=== PATIENT | male | born 1965 ===

== ENCOUNTER 2017-05-08 20:34 | Inpatient (IN) ==
--- NOTE | 2017-05-08 21:03 | Emergency Department Note ---
Dayna Mendez Mantricia, am scribing for, and in the presence of, Jeff Gomez MD 21:00. Jason Mendez Robert M, MD, personally performed the services described in this documentation, ascribed by Triny Mcintosh in my presence, and it is both accurate and complete . Arrival - Arrival Chief Complaint: Abdominal / Flank Pain Stated Complaint: Pancreatitis ED Nursing Triage Note: Patient to ED via EMS from [facility] ED for further evaluation of ABD pain x 1 day with a DX at [facility] at pancreatitis AEB elevated amylase and lipase. Mode of Arrival: Stretcher Limitations: No Limitations Source: Patient Time Seen by Provider: 05/08/17 20:56 - History of Present Illness HPI Narrative: Pt is a 52 y/o male arriving to ED by EMS from [facility] ED for further evaluation of abdominal pain that onset today. Pt was diagnosed with pancreatitis at [facility] and an elevated amylase and lipase. When asked, pt is not sure if he has had his gallbladder removed before. At time of exam, pt is sleeping and is a poor historian. No other complaints were reported to ED. Onset (ago): hour(s) Consistency: constant Severity: mild Allergies/Adverse Reactions: Allergies Allergy/AdvReac Type Severity Reaction Status Date / Time cefazolin [From Ancef] Allergy Severe Difficulty Verified 05/08/17 20:45 Breathing ciprofloxacin [From Cipro] Allergy Severe Difficulty Verified 05/08/17 20:45 Breathing ketorolac [From Toradol] Allergy Severe Nausea Verified 05/08/17 20:45 morphine Allergy Severe Nausea Verified 05/08/17 20:45 tramadol [From Ultram] Allergy Severe Hallucinati Verified 05/08/17 20:45 ng Home Medications: Home Medications Medication Instructions Recorded Confirmed Type Calcium Carbonate Chew [Tums] 3 tablet PO TID 01/10/17 01/10/17 History HYDROcodone/ACETAMIN 10-325 [[place] 1 tablet PO Q4H 01/10/17 01/10/17 History 10-325] Lidocaine/Prilocaine Cream [Emla] 1 applic TOP PREMED PRN 01/10/17 01/10/17 History Multivitamin (Berocca) [Berocca] 1 tablet PO DAILY 01/10/17 01/10/17 History Pantoprazole Tab [Protonix Tab] 40 mg PO DAILY 01/10/17 01/10/17 History Sevelamer Carbonate Tab [Renvela 3,200 mg PO TID W/MEALS 01/10/17 01/10/17 History Tab] Review of System - Review of System 12 point system: reviewed and no additional remarkable complaints except as stated - Review of System Constitutional: Absent: chills, diaphoresis, fever Eyes: Absent: pain Respiratory: Absent: cough Cardiovascular: Absent: chest pain Gastrointestinal: Present: abdominal pain. Absent: nausea, vomiting, diarrhea Medical,Surgical,& Family Hx - Medical History HEENT: History of: Ear Problem ([place]) Endocrine: History of: Adrenal Disease (alport syndrome) Renal: History of: Dialysis, Renal Failure Gastrointestinal: History of: GERD, Pancreatitis Musculoskeletal: History of: Back/Neck Problems - Social History Smoking Status: Never smoker Frequency of Alcohol Use: None Type of Drug Use: None Exam Vital Signs: Vital Signs Temperature 97.7 F 05/08/17 20:40 Pulse Rate 73 05/08/17 20:40 Respiratory Rate 12 05/08/17 20:40 Blood Pressure 104/64 05/08/17 20:40 O2 Sat by Pulse Oximetry 98 05/08/17 20:40 - Head Head exam: Present: atraumatic, normocephalic, normal inspection - Eye Eye exam: Present: normal appearance, PERRL, EOMI - ENT ENT exam: Present: normal exam, normal oropharynx, mucous membranes moist, TM's normal bilaterally, normal external ear exam - Neck Neck exam: Present: normal inspection, full ROM, trachea midline. Absent: tenderness - Chest Chest inspection: Present: normal inspection, symmetric chest wall rise. Absent : tenderness - Respiratory Respiratory exam: Present: normal lung sounds bilaterally - Cardiovascular Cardiovascular exam: Present: regular rate, normal rhythm, normal heart sounds - Abdominal Exam Abdominal exam: Present: soft, tenderness (dull tenderness in mid-epigastric), normal bowel sounds. Absent: distention, guarding, rebound - Extremities Exam Extremities exam: Present: normal inspection, full ROM, normal capillary refill. Absent: tenderness, pedal edema - Back Exam Back exam: Present: normal inspection, full ROM. Absent: tenderness - Neurological Exam Neurological exam: Present: alert, oriented X3, CN II-XII intact, normal gait, reflexes normal - Psychiatric Psychiatric exam: Present: normal affect, normal mood - Skin Skin exam: Present: warm, dry, intact, normal color Results - Labs Lab Results: I have reviewed the patients labs Labs: Amylase 276 U/L (25-115) H 05/08/17 21:51 Lipase 781.0 U/L (73-393) H 05/08/17 21:51 - Diagnostic Findings Procedure: Ultrasound: image reviewed by me (Distended gallbladder without stones or wall thickening. Ultrasonographic multiple Ellison sign present.) Disposition Clinical Impression: Pancreatitis, ESRD (end stage renal disease) on dialysis Case discussed with: patient, patient's family Disposition: Still a Patient Condition: Stable Time of Disposition: 22:15
--- NOTE | 2017-05-08 23:50 | Hospitalist History & Physical ---
History of Present Illness Chief complaint: acute abdominal pain History of present illness: Mr. Sanabria is a 52 year old male was transferred from out side facility for acute abdominal pain. He was found to have acute pancreatitis. Patient is a difficult historian. He states that he has pain in the RUQ. It is unknown whether or not there are any radiations. He denies any n/v. He does not know what the pain feels like. He denies any SOB or CP. He has ESRD and undergoes HD. He has a history of ETOH abuse. He is unable to tell me the last time he drank alcohol. Home Medications Medication Instructions Recorded Confirmed Type Calcium Carbonate Chew [Tums] 3 tablet PO TID 01/10/17 01/10/17 History HYDROcodone/ACETAMIN 10-325 [[place] 1 tablet PO Q4H 01/10/17 01/10/17 History 10-325] Lidocaine/Prilocaine Cream [Emla] 1 applic TOP PREMED PRN 01/10/17 01/10/17 History Multivitamin (Berocca) [Berocca] 1 tablet PO DAILY 01/10/17 01/10/17 History Pantoprazole Tab [Protonix Tab] 40 mg PO DAILY 01/10/17 01/10/17 History Sevelamer Carbonate Tab [Renvela 3,200 mg PO TID W/MEALS 01/10/17 01/10/17 History Tab] Allergies Allergy/AdvReac Type Severity Reaction Status Date / Time cefazolin [From Ancef] Allergy Severe Difficulty Verified 05/08/17 20:45 Breathing ciprofloxacin [From Cipro] Allergy Severe Difficulty Verified 05/08/17 20:45 Breathing ketorolac [From Toradol] Allergy Severe Nausea Verified 05/08/17 20:45 morphine Allergy Severe Nausea Verified 05/08/17 20:45 tramadol [From Ultram] Allergy Severe Hallucinati Verified 05/08/17 20:45 ng Medical,Surgical,& Family Hx - Medical History HEENT: History of: Ear Problem ([place]) Endocrine: No history of: Adrenal Disease (alport syndrome) Renal: History of: Dialysis, Renal Failure, Renal Problems (alport disease) Gastrointestinal: History of: GERD, Pancreatitis Musculoskeletal: History of: Back/Neck Problems - Surgical History Cardiac Surgeries: Sugical HX of: Vascular Access Devices (AV fistula) - Social History Smoking Status: Never smoker Frequency of Alcohol Use: Unknown Type of Drug Use: None, Unknown ROS unobtainable: other (difficult to obtain likely because of language barrier ; ROS per HPI) - Constitutional Constitutional: Present: as per HPI - EENT Eyes: Present: as per HPI - Cardiovascular Cardiovascular: Present: as per HPI - Respiratory Respiratory: Present: as per HPI - Gastrointestinal Gastrointestinal: Present: abdominal pain Exam - Constitutional Vitals: Period Temp Pulse Resp BP Sys/August Pulse Ox Last 24 Hr 97.7 F-97.7 F 73-73 12-12 104-104/64-64 98 General appearance: normal weight - Head Head exam: Present: normal inspection - Eye Eye exam: Present: EOMI, other (muddy sclera) Pupils: Present: FAVIOLA - ENT ENT exam: Present: normal exam - Cardiovascular Cardiovascular exam: Present: regular rate and rhythm - GI/Abdominal GI/Abdominal exam: Present: normal bowel sounds, Ellison's sign, tenderness (RUQ and mid epigastric tenderness without any rebound or guarding). Absent: distended, guarding, rebound - Extremities Exam Extremities exam: Present: other (LUE AVF with palpable thrill and audible bruit ). Absent: edema - Back Exam Back exam: Present: CVA tenderness (R) - Neurological Exam Neurological exam: Present: alert - Skin Skin exam: Present: other (tanned) Results - Labs Labs: labs scanned into system; please review 12.2 15.2> <149 36.2 139 97 16 <95 3.9 30 5.1 ALT: 34, AST: 27, Tb: 0.60, AP: 70 lipase: 1626, amylase: 380 lipase here: 781, amylase here: 276 RUQUS: no official report; distended gallbladder, no stones/sludge/gallbladder wall thickening - Impressions Assessment: 1. Acute abdominal pain 2. Acute pancreatitis 3. Distended gallbladder 4. Leukocytosis, afebrile 5. comorbid conditions: ESRD, GERD, [place] disease, OA, chronic pain syndrome Plan: bowel rest, very cautions IVFs, monitor volume and respiratory status; control pain; consult GI; surgery consulted from ER; check TGs; add aztreonam (allergy to ancef/cipro, so avoid zosyn/merrem/levaquin) given leukocytosis and concern for GI pathology; obtain chest x-ray; consult nephrology for HD; DVT and GI prophalaxis. Continue home medications as appropriate. The plan of care may be modified as more information becomes available.
[2017-05-09] MEDS ORDERED: ONDANSETRON 4 MG/2 ML VIAL IV PRN (00:13)
[2017-05-09] MEDS: SODIUM CHLORIDE 0.9% 1,000 ML IV SCH ×4 (00:57→22:11)
[2017-05-09] MEDS: MEPERIDINE 25 MG/1 ML VIAL IM PRN ×4 (02:40→22:06)
[2017-05-09] MEDS: AZTREONAM 500 MG in SODIUM CHLORIDE 0.9% 100 ML IV SCH ×2 (02:45→13:24)
[2017-05-09 05:14] LABS: Basophils % 0.4 % (0.0-0.8); Eosinophils # 0.2 10*3/uL (0.0-0.87); Eosinophils % 2.1 % (0.00-10.9); Hematocrit 34.3 VOL% (42.0-52.0); Hemoglobin 11.4 GM/DL (14.0-18.0); Immature Granulocytes % 0.6 %; Immature Granulocytes Absolute 0.05 #; Lymphocytes # 0.9 10*3/uL (1.4-4.0); Lymphocytes % 9.5 % (21.2-54.2); Mean Corpuscular HGB Conc 33.2 GM/DL (32-36); Mean Corpuscular Hemoglobin 33 PG (27-34); Mean Platelet Volume 9.9 FL (9.6-12.0); Monocytes # 0.5 10*3/uL (0.11-0.8); Monocytes % 5.6 % (1.7-12.7); Neutrophils # 7.4 10*3/uL (1.4-7.4); Neutrophils % 81.8 % (38.7-73.9); Platelet Count 148 T/CUMM (130-400); Red Blood Count 3.43 MC/CUMM (3.8-5.5); White Blood Count 9.1 T/CUMM (4-12)
[2017-05-09 05:58] LABS: Calcium 7.1 MG/DL (8.5-10.1); Magnesium 2.5 MG/DL (1.8-2.4); Osmolality,Calculated 275.8 MOS/KG (273-304); Potassium 4.3 MMOL/L (3.5-5.1); Risk Ratio 1.76; VLDL CHOLESTEROL 21.8 MG/DL
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
--- NOTE | 2017-05-09 07:17 | XRay Report ---
XR KUB Indication: Abdominal pain Comparison: 04 August 2014 Findings: No free fluid or free air seen. IVC filter and iliac vein stent on the left are present similar to previous. The bowel gas pattern appears within normal limits. The bili No abnormal calcifications are present. No other abnormality is identified. Impression: No evidence of acute process demonstrated PROCEDURE INTERPRETED AT [facility] DEPARTMENT OF RADIOLOGY Final Report Signed by: Dr. Mykel Vyas
--- NOTE | 2017-05-09 07:19 | Ultrasound Report ---
Right upper quadrant ultrasound Indication: Abdominal Pain, elevated lipase Findings: The liver is normal in size and echogenicity. The gallbladder is distended. The gallbladder wall thickness appears within normal limits. The common bile duct measures 8.0 mm. The visualized portion of the pancreas appear within normal limits The right kidney is small and atrophic in size and echogenicity and measures 6.8 cm . No free fluid or free air seen. Impression: Distended gallbladder and distended the common biliary duct could indicate distal obstruction. No other acute findings. Ultrasound images stored and captured. PROCEDURE INTERPRETED AT [facility] DEPARTMENT OF RADIOLOGY Final Report Signed by: Dr. Mykel Vyas
[2017-05-09] MEDS: PANTOPRAZOLE 40 MG VIAL IV SCH (08:39)
[2017-05-09] MEDS: ENOXAPARIN 30 MG/0.3 ML SYRINGE SUBCUT SCH (08:39)
--- NOTE | 2017-05-09 08:43 | XRay Report ---
XR chest 1V portable Indication: Pneumonia Comparison: 05 July 2014 Findings: The heart and mediastinum are normal in size and configuration. The pulmonary vascularity is normal in caliber. Left upper lung nodular density is similar in appearance to previous exams. No other lung infiltrates, effusions, pneumothorax or other abnormality is demonstrated. Impression: No acute findings or significant changes. PROCEDURE INTERPRETED AT [facility] DEPARTMENT OF RADIOLOGY Final Report Signed by: Dr. Mykel Vyas
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
--- NOTE | 2017-05-09 13:54 | Hospitalist Progress Note ---
Assessment and Plan (1) Acute pancreatitis Status: Acute Assessment and plan: Patient presented with mild/moderate bedside severity index of acute pancreatitis. He is stable in terms of vital signs not having fevers no respiratory issues white count is normal and hemoglobin is sufficient. Believe it can be fed start with low-fat diet. He can tolerated continue to feed him. Repeat a CMP lipase CBC on the chest x-ray in the morning. Current Visit: Yes (2) Abdominal pain Status: Acute Assessment and plan: Conservatively treat this with the analgesia most likely Dilaudid 1 mg IV every 6 hours as needed Current Visit: Yes Hospitalist: Subjective Interval history: Patient has been seen interviewed and examined chart has been reviewed. Patient is admitted overnight with acute subacute progression of an abdominal pain found to have pancreatitis. Was admitted with a lipase of 781 is down 325 his hemoglobin is 11.4 and 34.3 is a creatinine of 6.7 and the patient is known to have end-stage renal disease on dialysis 3 times a week. He does not have respiratory failure no pleural effusions but does have history of prior pancreatitis and a history of alcohol overuse which she says he has not drank for over a year. Exam - Constitutional Vitals: Period Temp Pulse Resp BP Sys/August Pulse Ox Last 24 Hr 97.7 F-98.5 F 64-77 12-81 78-108/47-66 94-98 General appearance: no acute distress, under weight, other (Requesting to be fed ) - Head Head exam: Present: normocephalic, atraumatic - Eye Eye exam: Present: EOMI, other (Anicteric sclera no conjunctival petechia) Pupils: Present: FAVIOLA - Neck Neck exam: Present: normal inspection - Respiratory Respiratory exam: Present: clear to auscultation bilaterally - Cardiovascular Cardiovascular exam: Present: regular rate and rhythm - GI/Abdominal GI/Abdominal exam: Present: normal bowel sounds, soft, other (Tender mostly periumbilical) - Extremities Exam Extremities exam: Present: full ROM - Neurological Exam Neurological exam: Present: alert, oriented X3, CN II-XII intact - Psychiatric Psychiatric exam: Present: normal affect, normal mood - Skin Skin exam: Present: normal color, warm, dry Results - Labs CBC & BMP: 05/09/17 04:19 05/09/17 04:19 Lab Results: I have reviewed the past 24 hour labs
--- NOTE | 2017-05-09 14:02 | Nuclear Medicine Report ---
History: Abdominal pain Date: 05/09/2017 Study: Nuclear medicine hepatobiliary scan with gallbladder ejection fraction Comparison exam: No previous similar Following the IV administration of 5 mCi technetium 99m Choletec, there is homogeneous uptake of the radiotracer by the liver. There is gallbladder visualization at 15 minutes. There is duodenal visualization at 25 minutes. Following routine imaging, gallbladder ejection fraction was calculated. Counts were measured over the gallbladder for 60 minutes after the ingestion of 8 ounces of ensure. The ejection fraction measures abnormally low at 8.5%. Impression: Abnormally low gallbladder ejection fraction of 8.5%. Otherwise normal study PROCEDURE INTERPRETED AT [facility] DEPARTMENT OF RADIOLOGY Final Report Signed by: Dr. Mine Flores
[2017-05-09] MEDS: SEVELAMER CARBONATE 800 MG TABLET PO SCH (18:11)
--- NOTE | 2017-05-09 19:13 | Gastrointestinal Consult Note ---
Assessment and Plan (1) Acute pancreatitis Status: Acute Assessment and plan: This is the main reason the patient is here, and although the patient has a history of alcohol abuse this ended some 15 years ago by report. Triglycerides are completely normal as is calcium and the patient does not have hypercalcemia , there is no history of abdominal trauma, insect envenomations, tropical fruit ingestion, or family history of chronic/recurrent pancreatitis. We need to check his liver function tests and see if there is a elevation the patient's bilirubin and alkaline phosphatase to go along with a dilation of the common bile duct that might be suggestive of biliary obstruction. I am going to go ahead and order an MRCP in order to look for stones as well as verify the ductal dilatation seen on ultrasound previously. I suspect this patient may have microlithiasis and if he is not a good surgical candidate we might want to treat this with Actigall 300 mg p.o. twice daily, especially if he is demonstrating normal liver function tests. This may also help out with chronic cholecystitis and his right upper quadrant pain. If the MRCP is negative and his pain continues unabated surgical resection of his gallbladder and intraoperative cholangiogram may be good choices for him. This would certainly prevent further episodes of pancreatitis due to microlithiasis. Will reassess after MRCP and liver function tests have returned tomorrow as well as examining the trend of his lipase levels. In the interim since the patient's pain is still on 8 out of 10 in intensity I suggest strongly suggest continuing to leave him on a clear liquid diet as this will be less stimulating for the pancreas. Current Visit: Yes (2) Abnormal findings on radiological examination of gastrointestinal tract Status: Acute Assessment and plan: This refers to the patient's dilation of the common bile duct and distention of the gallbladder. If the patient is still having severe pain after another 48 hours would consider getting a CT scan of the abdomen to look for early pseudocyst formation and see the extent of the pancreatitis. Would suggest use of proton pump inhibitors in the interim to suppress acidity as this can typically increase during episodes of pancreatitis. Current Visit: Yes (3) Personal history of colonic polyps Status: Acute Assessment and plan: Patient's next colonoscopy will be needed in June 2019 due to the previous tubular adenomas removed in June 2014. Current Visit: Yes (4) Gastritis and duodenitis Status: Acute Assessment and plan: This patient has a history of gastritis and duodenitis, he is currently on Protonix which should be suppressing this for him. Current Visit: Yes History of Present Illness Chief complaint: Dilated common bile duct, pancreatitis, possible chronic cholecystitis History of present illness: Mr. Sanabria is a 52 year old male who has been seen both by myself and Dr. Mcknight upon occasion in the past. The last upper endoscopy was done by Dr. Mcknight on for gastrointestinal bleeding. The patient had a moderate sized hiatal hernia, antral gastritis and bulbar duodenitis as well as a duodenal arteriovenous malformation without active bleeding at that time. Subsequent to this the patient underwent colonoscopy with hot biopsy polypectomy and hemorrhoidal banding on 08/05/14, total of 5 bands were placed on the patient's rectal varices. Biopsies have been previously taken from the polyps had previously been removed from the ascending and transverse regions demonstrated tubular adenomas. This will need repeat colonoscopy in June 2019. The patient is now being seen at this time due to the development of pancreatitis in association likely with gallstones or microlithiasis. The patient's discontinued drinking some 15 years ago by report. He had been a heavy drinker before that time and has actually developed alcohol "poisoning" twice in his life. He states this pain felt similar to that pain he was noted to have an elevated lipase level to 1626 at an outside hospital, here this was noted to have dropped down to 781 yesterday with a subsequent drop down to 325 today. Likewise lipase level had also dropped from 380 at the outside institution to 276 yesterday and is now down to 171 (slightly higher than the usual range of 25 -115). The patient feels that his pain was yesterday up to "11 out of 10 but is now down to an 8 out of 10 in intensity. Pain was described as a sharp pressure in the epigastric region and right upper quadrant. This did radiate through to his back. Because of his renal status we are not able to treat him with the usual fluid bolus to flush him out, he is due to go to dialysis tomorrow. Given the fact that he is still having such severe pain we will switch him over to a clear liquid diet again. The patient's ultrasound done on 05/08/17 show a distended gallbladder and a dilated common bile duct at 8 mm but is otherwise unremarkable. I do not see set of liver function tests done here to follow the patient's bilirubin but will certainly obtain this to look for obstruction. He did get a HIDA scan that demonstrated an ejection fraction of only 8.7% consistent with chronic cholecystitis. White blood cell count is only 9.1 and I am not suspicious of cholangitis. His hematocrit and hemoglobin are surprisingly good at 34.3 and 11.4 respectively. Creatinine is 6.7 at this time. Home Medications Medication Instructions Recorded Confirmed Type Calcium Carbonate Chew [Tums] 3 tablet PO TID 01/10/17 05/09/17 History HYDROcodone/ACETAMIN 10-325 [[place] 1 tablet PO Q4H 01/10/17 05/09/17 History 10-325] Lidocaine/Prilocaine Cream [Emla] 1 applic TOP PREMED PRN 01/10/17 05/09/17 History Multivitamin (Berocca) [Berocca] 1 tablet PO DAILY 01/10/17 05/09/17 History Pantoprazole Tab [Protonix Tab] 40 mg PO DAILY 01/10/17 05/09/17 History Sevelamer Carbonate Tab [Renvela 3,200 mg PO TID W/MEALS 01/10/17 05/09/17 History Tab] Allergies Allergy/AdvReac Type Severity Reaction Status Date / Time cefazolin [From Ancef] Allergy Severe Difficulty Verified 05/08/17 20:45 Breathing ciprofloxacin [From Cipro] Allergy Severe Difficulty Verified 05/08/17 20:45 Breathing ketorolac [From Toradol] Allergy Severe Nausea Verified 05/08/17 20:45 morphine Allergy Severe Nausea Verified 05/08/17 20:45 tramadol [From Ultram] Allergy Severe Hallucinati Verified 05/08/17 20:45 ng Medical,Surgical,& Family Hx - Medical History Cardio: History of: Hypertension Psychological: History of: Psychiatric/Substance Abuse Tx (HX ALCOHOL ABUSEB ( STOPPED 20 YRS AGO) A), Violent Behavior (WHEN WAS DRINKING) HEENT: History of: Ear Problem ([place]), Eye Problem ([place]) Endocrine: History of: Dyslipidemia No history of: Adrenal Disease (alport syndrome) Renal: History of: Dialysis, Renal Failure, Renal Problems (alport disease) Gastrointestinal: History of: GERD, Pancreatitis Musculoskeletal: History of: Back/Neck Problems, Degenerative Disk Disease ( LUMBAR DISC PROLAPSE WITH RADICULOPATHY), Musculoskeletal Problems (CORPAL JACQUELIN RUE,OSTEOARTHRITIS) Hematology: History of: Clotting Problems (HAD BLOOD CLOTS (IVC FILTER)) - Surgical History Cardiac Surgeries: Sugical HX of: Vascular Access Devices (AV fistula) HEENT Surgeries: Surgical HX of: Tonsilectomy & Adenoidectomy Patient denies: Eye Surgery, Thyroid Surgery - Family History Family History: Reports;: Family Diabetes (MOM,), Family Hypertension (MOM), Additional Family History (DIALYSIS BRO X1,SISTER X1 (BOTH )) Denies;: Family Anesthesia Reaction, Family Cancer, Family Heart Disease, Family Hematology, Family Psychiatric Problems, Family Stroke - Social History Smoking Status: Never smoker Frequency of Alcohol Use: Unknown Type of Drug Use: None, Unknown Review of systems: Constitutional: Denies fever, chills, positive for nausea, and vomiting Eyes: Denies dry eyes, and scleral icterus HENT: Occasional headaches Cardiovascular: Denies acute chest pain and claudication Respiratory: Denies shortness of breath, wheezing, and difficulty breathing, denies cough Gastrointestinal: As noted in the HPI Genitourinary: Denies dysuria and hematuria Neurologic: Denies vision loss, and loss of sensation Musculoskeletal: Patient does have some low-grade, joint stiffness, and muscular weakness without swelling Psychiatric: Denies depression and estefania symptoms Heme-Lymph: Denies easy bruising, lymph node enlargement or tenderness, night sweats, excessive bleeding Allergies-immunologic: Denies pruritus and rhinorrhea Exam - Constitutional Vitals: Period Temp Pulse Resp BP Sys/August Pulse Ox Last 24 Hr 97 F-98.5 F 64-77 12-81 78-108/47-66 94-98 Exam: Constitutional: Well-developed, well-nourished, alert, and in no acute distress Head and face: Head: Normocephalic atraumatic Eyes: Conjunctiva without injection, no gross scleral icterus, pupils equal and round bilaterally Ears: Intact to conversation in both ears Nose: External appearance is normal, nares patent Mouth: Oral mucous membranes moist without erythema dentition noted to be without erosion Neck: Normal appearance, no masses or tenderness, trachea midline Thyroid: Gland midline and appropriate size for age Respiratory: Normal respiratory effort, clear to auscultation without wheezes, rhonchi or rales Cardiovascular: Regular rate and rhythm, normal S1, S2, the exam is without rubs, murmurs or gallops. Gastrointestinal: Moderate tenderness to deep palpation in the right upper quadrant greater than epigastric region, normal active bowel sounds, tone normal without rigidity or guarding, no masses present, no hepatomegaly, no spleen tip felt. No rectal exam obtained. Lymphatic: Neck without adenopathy, axilla without lymphadenopathy present Musculoskeletal: Right and left lower extremities without evidence of edema Skin and subcutaneous tissue: No rashes or ulcerations noted, normal skin turgor, digits and nails without clubbing/cyanosis/deformities. Neurologic: The patient is grossly oriented to person place and time, cranial nerves show tongue movements are normal with normal tongue extrusion midline, light touch sensation is intact. Psychiatric: No hallucinations or delusions are present, does not appear depressed Results - Labs CBC & BMP: 05/09/17 04:19 05/09/17 04:19
[2017-05-10 05:14] LABS: Basophils % 0.4 % (0.0-0.8); Eosinophils # 0.2 10*3/uL (0.0-0.87); Eosinophils % 2.3 % (0.00-10.9); Hematocrit 31.7 VOL% (42.0-52.0); Hemoglobin 10.5 GM/DL (14.0-18.0); Immature Granulocytes % 0.4 %; Immature Granulocytes Absolute 0.03 #; Lymphocytes % 13.1 % (21.2-54.2); Mean Corpuscular HGB Conc 33.1 GM/DL (32-36); Mean Corpuscular Hemoglobin 33 PG (27-34); Mean Corpuscular Volume 100.3 FL (87-102); Mean Platelet Volume 9.7 FL (9.6-12.0); Monocytes # 0.7 10*3/uL (0.11-0.8); Monocytes % 9.3 % (1.7-12.7); Neutrophils # 5.5 10*3/uL (1.4-7.4); Neutrophils % 74.5 % (38.7-73.9); Platelet Count 123 T/CUMM (130-400); Red Blood Count 3.16 MC/CUMM (3.8-5.5); Red Cell Distribution Width 14.8 % (9.3-17.3); White Blood Count 7.4 T/CUMM (4-12)
[2017-05-10 05:54] LABS: Alanine Aminotransferase 14 U/L (16-61); Albumin 2.9 G/DL (3.4-5.0); Albumin 3.1 G/DL (3.4-5.0); Alkaline Phosphatase 61 U/L (45-117); Aspartate Amino Transferase 15 U/L (0-37); Bilirubin,Direct < 0.10 MG/DL (0.0-0.20); Bilirubin,Indirect 0.5 MG/DL (0.0-1.0); Bilirubin,Total 0.5 MG/DL (0.2-1.0); Calcium 6.3 MG/DL (8.5-10.1); Magnesium 2.4 MG/DL (1.8-2.4); Osmolality,Calculated 287.4 MOS/KG (273-304); Potassium 4.9 MMOL/L (3.5-5.1); Total Protein 6.1 G/DL (6.4-8.3); Total Protein 6.2 G/DL (6.4-8.3)
[2017-05-10] MEDS: MEPERIDINE 25 MG/1 ML VIAL IM PRN ×3 (06:18→20:50)
[2017-05-10] MEDS: SODIUM CHLORIDE 0.9% 1,000 ML IV SCH ×2 (06:24→21:51)
--- NOTE | 2017-05-10 07:20 | General Surgery Progress Note ---
Assessment and Plan (1) Pancreatitis Status: Acute Assessment and plan: The patient had filling of the cystic duct on the HIDA scan yesterday. I believe his decreased ejection fraction could be due to his acute illness and would not recommend surgery based on this finding alone in his current condition. He is getting a workup by GI for dilation of his bile duct. I will follow peripherally. Please call back with any further questions. Current Visit: Yes Subjective Patient reports: Present: no new complaints, feels better, still having pain, pain is less, bowel movement, afebrile. Absent: blood in stool Narrative: HIDA scan yesterday demonstrated normal filling of the gallbladder with decreased ejection fraction at around 8%. Patient's lipase is gone up today. GI has ordered an MRCP. Exam - Constitutional Vitals: Period Temp Pulse Resp BP Sys/August Pulse Ox Last 24 Hr 97 F-98.3 F 61-68 18-20 94-105/54-65 95-96 General appearance: normal weight, no acute distress - Head Head exam: Present: normal inspection, normocephalic - Eye Eye exam: Present: EOMI. Absent: scleral icterus Pupils: Present: FAVIOLA - ENT ENT exam: Present: normal exam Mouth exam: Present: normal external inspection, normal voice - Neck Neck exam: Present: normal inspection, trachea midline - Respiratory Respiratory exam: Present: clear to auscultation bilaterally. Absent: accessory muscle use, chest wall tenderness - Cardiovascular Cardiovascular exam: Present: RRR. Absent: systolic murmur, tachycardia - GI/Abdominal GI/Abdominal exam: Present: tenderness (Decreased tenderness midepigastric and right upper quadrant), soft. Absent: rebound - Extremities Exam Extremities exam: Present: normal inspection, normal capillary refill - Back Exam Back exam: Present: normal inspection - Neurological Exam Neurological exam: Present: alert, oriented X3 Speech: Present: normal - Skin Skin exam: Present: normal color, warm Results - Labs CBC & BMP: 05/10/17 04:25 05/10/17 04:25
[2017-05-10] MEDS ORDERED: LIDOCAINE/PRILOCAINE CREAM 5 GM TUBE TOP ONE (07:27)
--- NOTE | 2017-05-10 08:02 | XRay Report ---
XR chest 1V portable Indication: Pancreatitis Comparison: 09 May 2017 Findings: The heart and mediastinum are normal in size and configuration. The pulmonary vascularity is normal in caliber. No lung infiltrates, effusions, pneumothorax or other abnormality is demonstrated. Impression: No acute cardiopulmonary findings. PROCEDURE INTERPRETED AT [facility] DEPARTMENT OF RADIOLOGY Final Report Signed by: Dr. Mykel Vyas
--- NOTE | 2017-05-10 08:51 | Nephrology Progress Note ---
Nephrology - PN: Subj Interval history: Patient states his abdominal pain is better today. Review of systems pulmonary denies shortness of breath Physical exam general the patient is in no acute distress Assessment/plan 1. End-stage renal disease-we will continue hemodialysis support 2. Abdominal pain-patient's to have a MRCP today to evaluate his dilated common bile duct 3. Chronic pain 4. Anemia Exam (PN)-Nephrology - Vital Signs Vital signs: Period Temp Pulse Resp BP Sys/August Pulse Ox Last 24 Hr 97 F-97.6 F 61-68 18-20 94-105/54-65 95-97 - Lab 05/10/17 04:25 05/10/17 04:25 Most recent lab results Calcium 6.3 MG/DL (8.5-10.1) L 05/10/17 04:25 Magnesium 2.4 MG/DL (1.8-2.4) 05/10/17 04:25 Assessment and Plan (1) Abdominal pain Status: Acute Assessment and plan: Workup in progress, the patient is to have a HIDA scan his ultrasound of the gallbladder shows a dilated gallbladder and common bile duct, his amylase and lipase have normalized here at the hospital. Current Visit: Yes (2) Arthritis Status: Acute Current Visit: Yes (3) Chronic pain Status: Acute Assessment and plan: This patient has a long history of pain complaints involving his musculoskeletal system. Current Visit: Yes (4) ESRD (end stage renal disease) on dialysis Problem details: No acute indication for dialysis at this time. Status: Chronic Assessment and plan: We will plan on hemodialysis tomorrow. Current Visit: Yes (5) Anemia Status: Acute Assessment and plan: Patient's hematocrits around 34% Current Visit: Yes (6) Secondary hyperparathyroidism Status: Acute Assessment and plan: We will continue his Renvela with meals Current Visit: Yes
[2017-05-10] MEDS: PANTOPRAZOLE 40 MG VIAL IV SCH (11:52)
[2017-05-10] MEDS: SEVELAMER CARBONATE 800 MG TABLET PO SCH ×2 (11:56→20:19)
[2017-05-10] MEDS: ENOXAPARIN 30 MG/0.3 ML SYRINGE SUBCUT SCH (11:57)
--- NOTE | 2017-05-10 13:42 | Magnetic Resonance Report ---
MR abdomen wo con Indication: Dilated common bile duct measuring 8 mm. History of pancreatitis. Clinical concern for retained stone. Comparison: None. Technique: Using 1.5 Yvonne magnet, multisequence multiplanar MR imaging of the abdomen was performed without administration of intravenous contrast. Findings: As result of the thickness of image acquisition, the confluence of the main pancreatic duct and extrahepatic bile duct within the pancreatic head is not well visualized. The gallbladder is grossly distended measuring 11 cm x 6.4 cm. No gallbladder wall thickening is present. Respiratory motion blurs the caudal portion of the bile duct. On the axial T2 sequences, there is a small focus of low signal centrally located within the duct that may represent artifact versus filling defect. Common bile duct measures 5.8 mm. Extrahepatic bile duct is minimally enlarged measuring up to 7.4 mm. No significant intrahepatic biliary ductal dilatation is noted. Liver demonstrates no focal mass.Too numerous to count bilateral small renal cysts are demonstrated. Additionally appears to be some atrophy of the renal cortex bilaterally. No abnormality of the stomach is present. The pancreatic head and body the pancreas demonstrate no evidence of abnormality. Impression: 1. The confluence of the main pancreatic duct and common bile duct are not well visualized. The common bile duct within the pancreatic head is minimally enlarged and on some of the axial fluid weighted sequences, there does appear to be central low signal possibly reflective of intraluminal filling defect. Artifact is not excluded. Correlation with ERCP is recommended. 2. Gallbladder is distended. No stones are present. 3. Multiple bilateral renal cysts and renal cortical atrophy are present. 05/10/2017 1:24 PM PROCEDURE INTERPRETED AT [facility] DEPARTMENT OF RADIOLOGY Final Report Signed by: Dr. Myles Gomez
--- NOTE | 2017-05-10 14:33 | Hospitalist Progress Note ---
Assessment and Plan (1) Acute pancreatitis Status: Acute Assessment and plan: Patient presented with mild/moderate bedside severity index of acute pancreatitis. He is stable in terms of vital signs not having fevers no respiratory issues white count is normal and hemoglobin is sufficient. Give him clear liquids today and be n.p.o. after midnight the procedure tomorrow Current Visit: Yes (2) Abdominal pain Status: Acute Assessment and plan: Resolved Current Visit: Yes (3) Tick bite Status: Acute Assessment and plan: Fatigue was removed in total and is alive running around. DT could be sent to the laboratory for arthropod identification I prefer that the also check it for rickettsial and Ehrlichia and Anaplasma infection. They can review for bone area however that is very uncommon in this area. Prophylaxis with doxycycline could be considered. This will be 200 mg of doxycycline 1 dose. Granted studies for the use of prophylaxis were all done in areas where Lyme disease is endemic. I would extrapolate these data to justify the use of doxycycline in this case because of concerns of Ehrlichia, Anaplasma and rickettsial tickborne diseases. All these are treated with doxycycline. Current Visit: Yes Qualifiers: Qualified Code(s): W57.XXXA - Bitten or stung by nonvenomous insect and other nonvenomous arthropods, initial encounter Hospitalist: Subjective Interval history: Patient is seen interviewed and examined and chart has been reviewed offering no new complaints at this time other than wanting to eat. Admitted to the hospital with acute pancreatitis with mild/moderate bedside index of severity. It dilated common bile duct. The suggestion of possibility of dysfunctional sphincter of Oddi; he is being planned for an ERCP tomorrow. Could give him clear liquids and n.p.o. after midnight. This morning nursing found the tick that was embedded at his AV fistula. Patient has end-stage renal disease on dialysis. He cannot remember how long ago he was in the wounds. This looks like dear tick. The teeth has been sent to the lab for arthropod identification. I am not certain how evaluation for tickborne diseases could not be done in this take. Did discuss the need to have that done with the laboratory. Informed the displacement is going to be sent to [facility] in [place] where all send out specimens are sent. Exam - Constitutional Vitals: Period Temp Pulse Resp BP Sys/August Pulse Ox Last 24 Hr 97 F-97.6 F 61-79 18-20 94-105/54-65 95-97 General appearance: normal weight - Head Head exam: Present: normal inspection - Eye Eye exam: Present: EOMI, other Pupils: Present: FAVIOLA - ENT ENT exam: Present: normal exam - Neck Neck exam: Present: normal inspection - Respiratory Respiratory exam: Present: clear to auscultation bilaterally - Cardiovascular Cardiovascular exam: Present: regular rate and rhythm - GI/Abdominal GI/Abdominal exam: Present: normal bowel sounds, soft - Extremities Exam Extremities exam: Present: full ROM - Back Exam Back exam: Present: normal inspection - Neurological Exam Neurological exam: Present: alert, oriented X3, CN II-XII intact - Psychiatric Psychiatric exam: Present: normal affect, normal mood - Skin Skin exam: Present: normal color, warm, other (There is no rash on his body. Also inspected his body extensively for possibility of other tick bites; it would not find one.) Results - Labs CBC & BMP: 05/10/17 04:25 05/10/17 04:25 Lab Results: I have reviewed the past 24 hour labs
[2017-05-10] MEDS ORDERED: DOXYCYCLINE HYCLATE 100 MG CAPSULE PO STA (14:43)
--- NOTE | 2017-05-10 16:12 | Dialysis Note ---
Dialysis Note - Dialysis Note Patient seen on dialysis is tolerating the procedure. Blood pressure 105/65. Cardiovascular regular rate. Lungs are clear to auscultation. Abdomen is soft.
--- NOTE | 2017-05-10 20:38 | Gastrointestinal Progress Note ---
Assessment and Plan (1) Acute pancreatitis Status: Acute Assessment and plan: This is the main reason the patient is here, and although the patient has a history of alcohol abuse this ended some 15 years ago by report. Triglycerides are completely normal as is calcium and the patient does not have hypercalcemia , there is no history of abdominal trauma, insect envenomations, tropical fruit ingestion, or family history of chronic/recurrent pancreatitis. We need to check his liver function tests and see if there is a elevation the patient's bilirubin and alkaline phosphatase to go along with a dilation of the common bile duct that might be suggestive of biliary obstruction. I am going to go ahead and order an MRCP in order to look for stones as well as verify the ductal dilatation seen on ultrasound previously. I suspect this patient may have microlithiasis and if he is not a good surgical candidate we might want to treat this with Actigall 300 mg p.o. twice daily, especially if he is demonstrating normal liver function tests. This may also help out with chronic cholecystitis and his right upper quadrant pain. If the MRCP is negative and his pain continues unabated surgical resection of his gallbladder and intraoperative cholangiogram may be good choices for him. This would certainly prevent further episodes of pancreatitis due to microlithiasis. Will reassess after MRCP and liver function tests have returned tomorrow as well as examining the trend of his lipase levels. In the interim since the patient's pain is still on 8 out of 10 in intensity I suggest strongly suggest continuing to leave him on a clear liquid diet as this will be less stimulating for the pancreas. 05/10/17--Although the MRCP demonstrates what may be an intraluminal irregularity , he does not have any intraductal dilatation nor is his bilirubin elevated at all. Alkaline phosphatase and the rest of liver function tests are within normal limits. The patient likely has some microlithiasis and I will certainly start him on some Actigall at this time. Unfortunately he has not been placed on any sort of fluids to help flush out his kidneys and unfortunately is also a dialysis patient so any fluids given what had to be removed on dialysis. Without elevations in his bilirubin and transaminases I am not sure that a ERCP would not cause more harm than good. We will continue to follow liver function tests but I am going to switch the patient back on clear liquid diet and start him on Actigall 300 mg twice daily. Current Visit: Yes (2) Abnormal findings on radiological examination of gastrointestinal tract Status: Acute Assessment and plan: This refers to the patient's dilation of the common bile duct and distention of the gallbladder. If the patient is still having severe pain after another 48 hours would consider getting a CT scan of the abdomen to look for early pseudocyst formation and see the extent of the pancreatitis. Would suggest use of proton pump inhibitors in the interim to suppress acidity as this can typically increase during episodes of pancreatitis. 05/10/17--Patient shows a possible intraluminal stone in the pancreatic duct but no ductal dilatation into the liver and the common bile duct measures 5.8 mm. I think this is worth following but with essentially normal liver function tests I am not sure that an ERCP is warranted Current Visit: Yes (3) Personal history of colonic polyps Status: Resolved Assessment and plan: Patient's next colonoscopy will be needed in June 2019 due to the previous tubular adenomas removed in June 2014. Current Visit: Yes (4) Gastritis and duodenitis Status: Resolved Assessment and plan: This patient has a history of gastritis and duodenitis, he is currently on Protonix which should be suppressing this for him. Current Visit: Yes Gastroenterology - PN: Subj Interval history: Patient did not tolerate the solid diet well. His pain is now back up to a 9 out of 10 intensity and his lipase level is increased to over a thousand, he feels worse. He has not been been put on any IV fluids which would typically use to help flush out the kidney, due to his dialysis dependence. Unfortunately this may prolong his hospitalization. Exam (Progress Note) - Constitutional Vitals: Period Temp Pulse Resp BP Sys/August Pulse Ox Last 24 Hr 97.4 F-97.6 F 61-79 18-20 96-105/58-65 95-97 General appearance: mild distress (Sitting quietly in the bed he describes his pain as being 9 out of 10 in intensity.) - Head Head exam: Present: normocephalic - Eye Eye exam: Present: EOMI Pupils: Present: FAVIOLA - Respiratory Respiratory exam: Present: clear to auscultation bilaterally, stridor, wheezes - GI/Abdominal GI/Abdominal exam: Present: distended, hypoactive bowel sounds, tenderness, soft. Absent: rebound - Extremities Exam Extremities exam: Absent: edema - Neurological Exam Neurological exam: Present: alert, oriented X3 - Psychiatric Psychiatric exam: Present: normal affect, normal mood - Skin Skin exam: Present: warm Results - Labs CBC & BMP: 05/10/17 04:25 05/10/17 04:25
[2017-05-10] MEDS: URSODIOL 300 MG CAPSULE PO SCH (21:50)
[2017-05-11] MEDS: MEPERIDINE 25 MG/1 ML VIAL IM PRN ×3 (02:41→20:41)
[2017-05-11] MEDS: SEVELAMER CARBONATE 800 MG TABLET PO SCH ×4 (04:00→18:39)
[2017-05-11 07:31] LABS: Albumin 2.9 G/DL (3.4-5.0); Bilirubin,Direct 0.1 MG/DL (0.0-0.20); Bilirubin,Indirect 0.7 MG/DL (0.0-1.0); Bilirubin,Total 0.8 MG/DL (0.2-1.0); Total Protein 5.9 G/DL (6.4-8.3)
[2017-05-11] MEDS: SODIUM CHLORIDE 0.9% 1,000 ML IV SCH ×2 (09:53→20:46)
[2017-05-11] MEDS: ENOXAPARIN 30 MG/0.3 ML SYRINGE SUBCUT SCH (09:54)
[2017-05-11] MEDS: URSODIOL 300 MG CAPSULE PO SCH ×2 (09:54→20:41)
[2017-05-11] MEDS: PANTOPRAZOLE 40 MG VIAL IV SCH (09:55)
--- NOTE | 2017-05-11 12:36 | Hospitalist Progress Note ---
Assessment and Plan (1) Acute pancreatitis Status: Acute Assessment and plan: Patient presented with mild/moderate bedside severity index of acute pancreatitis. He is stable in terms of vital signs not having fevers no respiratory issues white count is normal and hemoglobin is sufficient. Advance diet to renal diet Current Visit: Yes (2) Abdominal pain Status: Acute Assessment and plan: Resolved Current Visit: Yes (3) Tick bite Status: Acute Assessment and plan: Fatigue was removed in total and is alive running around. DT could be sent to the laboratory for arthropod identification I prefer that the also check it for rickettsial and Ehrlichia and Anaplasma infection. They can review for bone area however that is very uncommon in this area. Prophylaxis with doxycycline could be considered. This will be 200 mg of doxycycline 1 dose. Granted studies for the use of prophylaxis were all done in areas where Lyme disease is endemic. I would extrapolate these data to justify the use of doxycycline in this case because of concerns of Ehrlichia, Anaplasma and rickettsial tickborne diseases. All these are treated with doxycycline. Current Visit: Yes Qualifiers: Qualified Code(s): W57.XXXA - Bitten or stung by nonvenomous insect and other nonvenomous arthropods, initial encounter Hospitalist: Subjective Interval history: Patient has been seen interviewed and examined and chart has been reviewed gentleman admitted to the hospital with acute pancreatitis is lipase is significantly improved. Patient to advance his diet to solids today. Incidental yesterday patient was found to have had a tick bite at the site of dialysis shunt this was removed in toto and sent to the lab for identification. He was given doxycycline 200 mg p.o. 1. I refer you to note from yesterday for reasoning on this. Exam - Constitutional Vitals: Period Temp Pulse Resp BP Sys/August Pulse Ox Last 24 Hr 97.2 F-98.6 F 63-71 12-20 102-117/56-65 95-97 General appearance: no acute distress, under weight - Head Head exam: Present: normocephalic, atraumatic - Eye Eye exam: Present: EOMI Pupils: Present: FAVIOLA - ENT ENT exam: Present: normal exam - Neck Neck exam: Present: normal inspection - Respiratory Respiratory exam: Present: clear to auscultation bilaterally - Cardiovascular Cardiovascular exam: Present: regular rate and rhythm - GI/Abdominal GI/Abdominal exam: Present: normal bowel sounds, soft - Extremities Exam Extremities exam: Present: full ROM, other (Did mention complaint of musculoskeletal aching and headache. No fevers.) - Neurological Exam Neurological exam: Present: alert, oriented X3, CN II-XII intact - Psychiatric Psychiatric exam: Present: normal affect, normal mood - Skin Skin exam: Present: normal color, warm, dry, other (Dialysis shunt is functional. There is no rash on his skin.) Results - Labs CBC & BMP: 05/10/17 04:25 05/10/17 04:25 Lab Results: I have reviewed the past 24 hour labs
--- NOTE | 2017-05-11 14:32 | Nephrology Progress Note ---
Nephrology - PN: Subj Interval history: Patient states he had some abdominal pain when he ate lunch today. Review of systems pulmonary he denies shortness of breath Physical exam general the patient is in no acute distress Assessment/plan 1. End-stage renal disease-we will continue hemodialysis support 2. Pancreatitis-patient's lipase is been fluctuating widely he does have some abdominal pain with eating and has some dilated common bile duct and distended gallbladder by radiological evaluation, defer management to gastroenterology 3. Anemia-patient's hematocrits around 32% Exam (PN)-Nephrology - Vital Signs Vital signs: Period Temp Pulse Resp BP Sys/August Pulse Ox Last 24 Hr 97.2 F-98.6 F 61-71 12-20 102-117/56-65 95-97 - Lab 05/10/17 04:25 05/10/17 04:25 Most recent lab results Calcium 6.3 MG/DL (8.5-10.1) L 05/10/17 04:25 Magnesium 2.4 MG/DL (1.8-2.4) 05/10/17 04:25 Assessment and Plan (1) Abdominal pain Status: Acute Assessment and plan: Workup in progress, the patient is to have a HIDA scan his ultrasound of the gallbladder shows a dilated gallbladder and common bile duct, his amylase and lipase have normalized here at the hospital. Current Visit: Yes (2) Arthritis Status: Acute Current Visit: Yes (3) Chronic pain Status: Acute Assessment and plan: This patient has a long history of pain complaints involving his musculoskeletal system. Current Visit: Yes (4) ESRD (end stage renal disease) on dialysis Problem details: No acute indication for dialysis at this time. Status: Chronic Assessment and plan: We will plan on hemodialysis tomorrow. Current Visit: Yes (5) Anemia Status: Acute Assessment and plan: Patient's hematocrits around 34% Current Visit: Yes (6) Secondary hyperparathyroidism Status: Acute Assessment and plan: We will continue his Renvela with meals Current Visit: Yes
--- NOTE | 2017-05-11 20:51 | Gastrointestinal Progress Note ---
Assessment and Plan (1) Acute pancreatitis Status: Acute Assessment and plan: This is the main reason the patient is here, and although the patient has a history of alcohol abuse this ended some 15 years ago by report. Triglycerides are completely normal as is calcium and the patient does not have hypercalcemia , there is no history of abdominal trauma, insect envenomations, tropical fruit ingestion, or family history of chronic/recurrent pancreatitis. We need to check his liver function tests and see if there is a elevation the patient's bilirubin and alkaline phosphatase to go along with a dilation of the common bile duct that might be suggestive of biliary obstruction. I am going to go ahead and order an MRCP in order to look for stones as well as verify the ductal dilatation seen on ultrasound previously. I suspect this patient may have microlithiasis and if he is not a good surgical candidate we might want to treat this with Actigall 300 mg p.o. twice daily, especially if he is demonstrating normal liver function tests. This may also help out with chronic cholecystitis and his right upper quadrant pain. If the MRCP is negative and his pain continues unabated surgical resection of his gallbladder and intraoperative cholangiogram may be good choices for him. This would certainly prevent further episodes of pancreatitis due to microlithiasis. Will reassess after MRCP and liver function tests have returned tomorrow as well as examining the trend of his lipase levels. In the interim since the patient's pain is still on 8 out of 10 in intensity I suggest strongly suggest continuing to leave him on a clear liquid diet as this will be less stimulating for the pancreas. 05/10/17--Although the MRCP demonstrates what may be an intraluminal irregularity , he does not have any intraductal dilatation nor is his bilirubin elevated at all. Alkaline phosphatase and the rest of liver function tests are within normal limits. The patient likely has some microlithiasis and I will certainly start him on some Actigall at this time. Unfortunately he has not been placed on any sort of fluids to help flush out his kidneys and unfortunately is also a dialysis patient so any fluids given what had to be removed on dialysis. Without elevations in his bilirubin and transaminases I am not sure that a ERCP would not cause more harm than good. We will continue to follow liver function tests but I am going to switch the patient back on clear liquid diet and start him on Actigall 300 mg twice daily. 05/11/17--His lipase level bumped up yesterday to 1076-- these are now down to 177 post initiation of Actigall. He is routinely eating about half of his diet. I discussed the findings of the MRCP and the utility of use of Actigall with the patient he has trying to avoid having to go to surgery if possible. I think if he is doing well tomorrow and is tolerating some of his solid diet he can certainly be discharged home to follow-up with me in 2-3 months. Again the patient's liver function tests are fairly unremarkable, and his pain appears to be improving markedly. Current Visit: Yes (2) Abnormal findings on radiological examination of gastrointestinal tract Status: Acute Assessment and plan: This refers to the patient's dilation of the common bile duct and distention of the gallbladder. If the patient is still having severe pain after another 48 hours would consider getting a CT scan of the abdomen to look for early pseudocyst formation and see the extent of the pancreatitis. Would suggest use of proton pump inhibitors in the interim to suppress acidity as this can typically increase during episodes of pancreatitis. 05/10/17--Patient shows a possible intraluminal stone in the pancreatic duct but no ductal dilatation into the liver and the common bile duct measures 5.8 mm. I think this is worth following but with essentially normal liver function tests I am not sure that an ERCP is warranted 05/11/16--as noted above. Current Visit: Yes (3) Personal history of colonic polyps Status: Resolved Assessment and plan: Patient's next colonoscopy will be needed in June 2019 due to the previous tubular adenomas removed in June 2014. 05/11/17--as noted above. Current Visit: Yes (4) Gastritis and duodenitis Status: Resolved Assessment and plan: This patient has a history of gastritis and duodenitis, he is currently on Protonix which should be suppressing this for him. 05/11/16--the patient remains on Protonix. Will probably give him some MiraLAX to help out with his constipation issues. Current Visit: Yes Gastroenterology - PN: Subj Interval history: Patient is having intermittent epigastric pain but this usually lasts for minutes only and usually after eating something. Upon further discussion with him that seems like he might be confusing the pain from constipation with the pain he was previously experiencing with his pancreatitis. This seems to be better after passage of bowel movements. His lipase level certainly improved today--he has been started on Actigall which should help solubilized his gallstones (potentially). I certainly feel like he would tolerate this better than the gallbladder resection. Exam (Progress Note) - Constitutional Vitals: Period Temp Pulse Resp BP Sys/August Pulse Ox Last 24 Hr 97.2 F-98.0 F 58-71 12-20 101-117/56-65 95-97 General appearance: no acute distress - Head Head exam: Present: normocephalic - Eye Eye exam: Present: EOMI Pupils: Present: FAVIOLA - Respiratory Respiratory exam: Present: clear to auscultation bilaterally. Absent: rhonchi, stridor, wheezes - GI/Abdominal GI/Abdominal exam: Present: normal bowel sounds, firm, tenderness (Mild epigastric). Absent: ascites, guarding, rebound - Extremities Exam Extremities exam: Present: normal inspection. Absent: edema - Neurological Exam Neurological exam: Present: alert, oriented X3 - Psychiatric Psychiatric exam: Present: normal affect, normal mood - Skin Skin exam: Present: warm Results - Labs CBC & BMP: 05/10/17 04:25 05/10/17 04:25
[2017-05-12] MEDS: MEPERIDINE 25 MG/1 ML VIAL IM PRN (03:54)
[2017-05-12] MEDS: URSODIOL 300 MG CAPSULE PO SCH (08:18)
[2017-05-12] MEDS: SEVELAMER CARBONATE 800 MG TABLET PO SCH ×2 (08:18→13:28)
[2017-05-12] MEDS: PANTOPRAZOLE 40 MG VIAL IV SCH (08:20)
[2017-05-12] MEDS: ENOXAPARIN 30 MG/0.3 ML SYRINGE SUBCUT SCH (08:21)
--- NOTE | 2017-05-12 08:26 | General Surgery Progress Note ---
Assessment and Plan (1) Pancreatitis Status: Acute Assessment and plan: I agree with conservative management for this patient. He is being set up to be discharged and Actigall will be continued. I see in Dr. Flores's note that he will see him in follow-up. I will sign off completely at this time. Given the lack of gallstones and the confounding factors during the HIDA scan study but could have depressed his gallbladder ejection fraction I do not feel that surgical intervention is warranted if he can be managed medically. I be happy to see him back in the clinic if something changes. Current Visit: Yes Subjective Patient reports: Present: no new complaints, feels better, pain is less, tolerating a regular diet, afebrile Narrative: Lipase has normalized. MRCP was reviewed. I am not convinced that there is a filling defect in the common bile duct and this looks more like artifact to me. Patient's bilirubin is normal and his bile duct was not as dilated on the MRCP as the ultrasound suggested. No gallstones in the gallbladder. Patient feels better after starting Actigall. He is having no pain and eating well. Exam - Constitutional Vitals: Period Temp Pulse Resp BP Sys/August Pulse Ox Last 24 Hr 97.3 F-98.0 F 58-64 18-20 101-116/56-71 68-97 General appearance: normal weight, no acute distress - Head Head exam: Present: normal inspection, normocephalic - Eye Eye exam: Present: EOMI. Absent: scleral icterus Pupils: Present: FAVIOLA - ENT ENT exam: Present: normal exam Mouth exam: Present: normal external inspection, normal voice - Neck Neck exam: Present: normal inspection, trachea midline - Respiratory Respiratory exam: Present: clear to auscultation bilaterally. Absent: accessory muscle use, chest wall tenderness - Cardiovascular Cardiovascular exam: Present: RRR. Absent: systolic murmur, tachycardia - GI/Abdominal GI/Abdominal exam: Present: normal bowel sounds, soft. Absent: tenderness, rebound - Extremities Exam Extremities exam: Present: normal inspection, normal capillary refill - Back Exam Back exam: Present: normal inspection - Neurological Exam Neurological exam: Present: alert, oriented X3 Speech: Present: normal - Skin Skin exam: Present: normal color, warm Results - Labs CBC & BMP: 05/10/17 04:25 05/10/17 04:25
--- NOTE | 2017-05-12 10:10 | Nephrology Progress Note ---
Nephrology - PN: Subj Interval history: Patient is seen on hemodialysis, he is tolerating this well will continue his treatment unchanged, the patient's abdominal pain has improved greatly. Assessment/plan 1. End-stage renal disease 2. Abdominal pain-this patient has some pancreatitis this seems to have resolved he has been started on Actigall to try and prevent further attacks. Patient is okay for discharge from my standpoint. Exam (PN)-Nephrology - Vital Signs Vital signs: Period Temp Pulse Resp BP Sys/August Pulse Ox Last 24 Hr 97.3 F-98.0 F 58-64 18-20 101-116/56-71 68-97 - Lab 05/10/17 04:25 05/10/17 04:25 Most recent lab results Calcium 6.3 MG/DL (8.5-10.1) L 05/10/17 04:25 Magnesium 2.4 MG/DL (1.8-2.4) 05/10/17 04:25 Assessment and Plan (1) Abdominal pain Status: Acute Assessment and plan: Workup in progress, the patient is to have a HIDA scan his ultrasound of the gallbladder shows a dilated gallbladder and common bile duct, his amylase and lipase have normalized here at the hospital. Current Visit: Yes (2) Arthritis Status: Acute Current Visit: Yes (3) Chronic pain Status: Acute Assessment and plan: This patient has a long history of pain complaints involving his musculoskeletal system. Current Visit: Yes (4) ESRD (end stage renal disease) on dialysis Problem details: No acute indication for dialysis at this time. Status: Chronic Assessment and plan: We will plan on hemodialysis tomorrow. Current Visit: Yes (5) Anemia Status: Acute Assessment and plan: Patient's hematocrits around 34% Current Visit: Yes (6) Secondary hyperparathyroidism Status: Acute Assessment and plan: We will continue his Renvela with meals Current Visit: Yes
--- NOTE | 2017-05-12 11:51 | Gastrointestinal Progress Note ---
Assessment and Plan (1) Acute pancreatitis Status: Acute Assessment and plan: This is the main reason the patient is here, and although the patient has a history of alcohol abuse this ended some 15 years ago by report. Triglycerides are completely normal as is calcium and the patient does not have hypercalcemia , there is no history of abdominal trauma, insect envenomations, tropical fruit ingestion, or family history of chronic/recurrent pancreatitis. We need to check his liver function tests and see if there is a elevation the patient's bilirubin and alkaline phosphatase to go along with a dilation of the common bile duct that might be suggestive of biliary obstruction. I am going to go ahead and order an MRCP in order to look for stones as well as verify the ductal dilatation seen on ultrasound previously. I suspect this patient may have microlithiasis and if he is not a good surgical candidate we might want to treat this with Actigall 300 mg p.o. twice daily, especially if he is demonstrating normal liver function tests. This may also help out with chronic cholecystitis and his right upper quadrant pain. If the MRCP is negative and his pain continues unabated surgical resection of his gallbladder and intraoperative cholangiogram may be good choices for him. This would certainly prevent further episodes of pancreatitis due to microlithiasis. Will reassess after MRCP and liver function tests have returned tomorrow as well as examining the trend of his lipase levels. In the interim since the patient's pain is still on 8 out of 10 in intensity I suggest strongly suggest continuing to leave him on a clear liquid diet as this will be less stimulating for the pancreas. 05/10/17--Although the MRCP demonstrates what may be an intraluminal irregularity , he does not have any intraductal dilatation nor is his bilirubin elevated at all. Alkaline phosphatase and the rest of liver function tests are within normal limits. The patient likely has some microlithiasis and I will certainly start him on some Actigall at this time. Unfortunately he has not been placed on any sort of fluids to help flush out his kidneys and unfortunately is also a dialysis patient so any fluids given what had to be removed on dialysis. Without elevations in his bilirubin and transaminases I am not sure that a ERCP would not cause more harm than good. We will continue to follow liver function tests but I am going to switch the patient back on clear liquid diet and start him on Actigall 300 mg twice daily. 05/11/17--His lipase level bumped up yesterday to 1076-- these are now down to 177 post initiation of Actigall. He is routinely eating about half of his diet. I discussed the findings of the MRCP and the utility of use of Actigall with the patient he has trying to avoid having to go to surgery if possible. I think if he is doing well tomorrow and is tolerating some of his solid diet he can certainly be discharged home to follow-up with me in 2-3 months. Again the patient's liver function tests are fairly unremarkable, and his pain appears to be improving markedly. 05/12/17--The patient is eating his diet well and can likely be discharged at this time, at least from a GI standpoint. A prescription for the Actigall has been left in the form of this chart (underneath the front cover) and from my standpoint he can certainly be discharged home. He needs to continue the Actigall for at least 6 months before discontinuing to see if this will solubilized his gallstones/microlithiasis. Low-fat diet is strongly suggested over the next week to week and a half. I will sign off at this time, thank you for the opportunity see this very pleasant patient again. Current Visit: Yes (2) Abnormal findings on radiological examination of gastrointestinal tract Status: Acute Assessment and plan: This refers to the patient's dilation of the common bile duct and distention of the gallbladder. If the patient is still having severe pain after another 48 hours would consider getting a CT scan of the abdomen to look for early pseudocyst formation and see the extent of the pancreatitis. Would suggest use of proton pump inhibitors in the interim to suppress acidity as this can typically increase during episodes of pancreatitis. 05/10/17--Patient shows a possible intraluminal stone in the pancreatic duct but no ductal dilatation into the liver and the common bile duct measures 5.8 mm. I think this is worth following but with essentially normal liver function tests I am not sure that an ERCP is warranted 05/11/17--as noted above. 05/12/17--the patient can follow-up with me in the office in 2-3 months or as needed sooner if needed. He did have an episode of previous pancreatitis likely secondary to microlithiasis and seems to be responding positively to the Actigall. The patient has reached the maximum benefits of his hospitalization can likely be discharged at this time. Current Visit: Yes (3) Personal history of colonic polyps Status: Resolved Assessment and plan: Patient's next colonoscopy will be needed in June 2019 due to the previous tubular adenomas removed in June 2014. 05/11/17--as noted above. 05/12/17--follow up for next colonoscopy in June 2019 Current Visit: Yes (4) Gastritis and duodenitis Status: Resolved Assessment and plan: This patient has a history of gastritis and duodenitis, he is currently on Protonix which should be suppressing this for him. 05/11/17--the patient remains on Protonix. Will probably give him some MiraLAX to help out with his constipation issues. 05/12/17--continue on the Protonix, prescription written for this medication as well. Current Visit: Yes Gastroenterology - PN: Subj Interval history: Patient is eating well, no further complaints of abdominal pain, he is tolerating the Actigall well. A prescription has been written and left in the front of the chart for his eventual discharge. Exam (Progress Note) - Constitutional Vitals: Period Temp Pulse Resp BP Sys/August Pulse Ox Last 24 Hr 97.3 F-98.0 F 58-64 18-20 101-116/56-71 68-97 General appearance: no acute distress - Eye Eye exam: Present: EOMI - Respiratory Respiratory exam: Present: clear to auscultation bilaterally - Cardiovascular Cardiovascular exam: Present: regular rate and rhythm - GI/Abdominal GI/Abdominal exam: Present: normal bowel sounds, soft. Absent: ascites, distended, guarding, tenderness - Extremities Exam Extremities exam: Absent: edema - Neurological Exam Neurological exam: Present: alert, oriented X3 - Psychiatric Psychiatric exam: Present: normal affect, normal mood - Skin Skin exam: Present: warm Results - Labs CBC & BMP: 05/10/17 04:25 05/10/17 04:25
[2017-05-12 11:55] VITALS: BP 115/68
--- NOTE | 2017-05-12 12:14 | Discharge Summary ---
Hospital Course - Hospital Course Hospital Course: This is a chronically ill 52-year-old male that presented to the ED at [facility] on the night of May 08, 2017 as a transfer from the [facility] for further evaluation of abdominal pain. The patient has a medical history significant for hearing loss, Alport syndrome, end-stage renal disease, remote alcohol abuse, degenerative disc disease, osteoarthritis, carpal tunnel syndrome,pancreatitis, gastroesophageal reflux disease, and chronic neck and back pain. Patient surgical history significant for multiple vascular access and AV fistula creations, inferior vena cava filter placement, tonsillectomy, and adenoidectomy. The patient reported the onset of the above symptoms on the day of presentation which prompted him to report to the [facility] for further evaluation. The patient was noted to have elevated amylase and lipase at the [facility]; the patient was subsequently transferred to [facility] for continuation of care. The patient was assessed at the time of ED presentation. Labs reported amylase at 276 and lipase at 781. Ultrasound of the abdomen was significant for distention of the gallbladder without danielle or thickening and an ultrasonographic multiple Ellison signs were present. The patient was subsequently admitted to the hospitalist service for continuation of care. A general surgery, gastroenterology, and nephrology consultation was requested to assist and evaluate during the clinical encounter. The patient was seen by nephrology and hemodialysis treatments were continued. The patient was seen and evaluated by general surgery and recommendations were given for HIDA scan. On May 09, 2017, the patient underwent nuclear medicine hepatobiliary scan which reported abnormally low gallbladder ejection fraction of 8.5% which was otherwise normal. The patient was deemed inappropriate for surgical intervention at that time. Patient was seen and evaluated by gastroenterology and recommendations were given. On May 10, 2017, the patient underwent abdominal MRI which wa significant for the confluence of the main pancreatic and common bile duct were not well visualized, the common bile duct within the pancreatic head was minimally enlarged and on some of the adnexal fluid weighted sequences there did not appear to be central low signal possibility reflected of intraluminal filling defect however artifact cannot be excluded. The patient's gallbladder was distended however no stones were present. In addition, multiple bilateral renal cysts and renal cortical atrophy was noted. The patient was then started on Actigall per GI recommendation and the patient' s lipase level gradually declined. The patient's condition gradually improved. The patient's condition is stable. He has not experienced any significant overnight events. The patient's lipase level is noted at 177. 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 Diagnosis - Discharge Diagnosis (1) Acute pancreatitis Status: Acute (2) Abdominal pain Status: Acute (3) Tick bite Status: Acute Discharge Plan - Discharge Data Disposition: Disch To Home/Self Care Condition at Discharge: Stable Discharge Diet: low fat, low cholesterol Activity: resume usual activities as tolerated Hygiene: no restrictions Weight Bearing at Discharge: weight bear as tolerated Contact your physician if you experience:: fever over 101, Redness or swelling, Nausea/Vomiting, pain uncontrolled by pain medications - Discharge Medications New Ursodiol [Actigall] 300 mg PO BID #60 capsule Continue Sevelamer Carbonate Tab [Renvela Tab] 3,200 mg PO TID W/MEALS Lidocaine/Prilocaine Cream [Emla] 1 applic TOP PREMED PRN PRN Reason: Dialysis HYDROcodone/ACETAMIN 10-325 [[place] 10-325] 1 tablet PO Q4H Multivitamin (Berocca) [Berocca] 1 tablet PO DAILY Calcium Carbonate Chew [Tums] 3 tablet PO TID Pantoprazole Tab [Protonix Tab] 40 mg PO DAILY - Follow Up or Referral - Forms/Instructions Exam - Constitutional Vitals: Period Temp Pulse Resp BP Sys/August Pulse Ox Last 24 Hr 97.3 F-98 F 56-64 18-20 101-116/56-71 68-98 General appearance: normal weight, no acute distress - Head Head exam: Present: normocephalic, atraumatic - Eye Eye exam: Present: EOMI Pupils: Present: FAVIOLA - Respiratory Respiratory exam: Present: clear to auscultation bilaterally - Cardiovascular Cardiovascular exam: Present: regular rate and rhythm - GI/Abdominal GI/Abdominal exam: Present: normal bowel sounds, soft - Extremities Exam Extremities exam: Present: full ROM - Neurological Exam Neurological exam: Present: alert, oriented X3, CN II-XII intact - Psychiatric Psychiatric exam: Present: normal affect, normal mood - Skin Skin exam: Present: normal color, warm Discharge Results Procedures and tests throughout hospitalization: Pending Orders 05/10/17 09:00 Parasite Identification Routine Labs on day of discharge: Labs from last 24 hours 05/12/17 05/12/17 11:34 07:34 POC Glucose 89 78 DS: Provider Date of admission: 05/08/17 23:25 Primary care physician: Rahel Olsen MD Attending physician on admission: Charisma Nieto MD Consults: 05/09/17 00:13 Consult to Physician [CONS] Routine Comment: ESRD on HD Consulting Provider: Kyle Birch When should Consulting Provider be notified: In am Person Notified: [email or web address] Date Notified: 05/09/17 Time Notified: 07:35 Discharging clinician: Sampson Morse MD
[2017-05-12] MEDS: SODIUM CHLORIDE 0.9% 1,000 ML IV SCH (14:19)
--- NOTE | 2017-05-22 08:58 | Physician Query Form ---
CLICK EDIT DOCUMENT TO SELECT QUERY ANSWER --> OK --> SIGN Claudia Moore RN Clinical Cat Scanner Operator W) [phone] (f) [phone] [email or web address]: Make your selection(s) from the choices in EACH section by typing an "x" and enter comments in the comment section. Please use your independent medical judgment in providing your response. This request does not imply that any particular answer is desired or expected. 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 PLEASE CLARIFY. Based on the above, which following choice most accurately represents the patient's nutritional status? ( ) Malnutrition ( ) mild ( ) moderate ( ) severe ( ) Protein calorie malnutrition ( ) mild ( ) moderate ( ) severe ( ) Emaciation due to malnutrition ( ) Nutritional marasmus ( ) Cachexia (x ) Underweight ( ) No nutritional deficiency ( ) Other, please specify: ( ) Clinically unable to determine Mild Malnutrition (BMI < 18.5, % Normal Body Weight 85-95%) Moderate Malnutrition (BMI < 17, % Normal Body Weight 75-85%) Severe Malnutrition (BMI < 16, % Normal Body Weight < 75%) Source: Elin COMMENTS: PLEASE ALSO DOCUMENT RESPONSE IN PROGRESS NOTES AND/OR DISCHARGE SUMMARY Use of terms such as suspected, likely, or probable (associated with a specific diagnosis that is being evaluated, monitored, or treated as if it exists) are acceptable and can be restated in the discharge summary if not ruled out. MTDD
== END 2017-05-12 15:54 | disposition home or self-care (01) | DRG 438 ==
LOC: EDUNIT# → EDBD → N.ED 20:34 → N.EDINP 23:25 → SUATTDRO 23:25 → N.2E 23:46
PROVIDERS: ADMIT Internal Medicine; ATTEND Internal Medicine Infectious Disease

== ENCOUNTER 2018-05-04 06:01 | Inpatient (IN) ==
[2018-05-04 07:14] LABS: Basophils % 0.2 % (0.0-0.8); Eosinophils # 0.1 10*3/uL (0.0-0.87); Eosinophils % 0.3 % (0.00-10.9); Hematocrit 39.7 VOL% (42.0-52.0); Hemoglobin 12.6 GM/DL (14.0-18.0); Immature Granulocytes % 0.8 %; Immature Granulocytes Absolute 0.16 #; Lymphocytes # 0.4 10*3/uL (1.4-4.0); Mean Corpuscular HGB Conc 31.7 GM/DL (32-36); Mean Corpuscular Hemoglobin 33 PG (27-34); Mean Corpuscular Volume 102.6 FL (87-102); Mean Platelet Volume 9.6 FL (9.6-12.0); Monocytes # 1.1 10*3/uL (0.11-0.8); Monocytes % 5.4 % (1.7-12.7); Neutrophils # 19.3 10*3/uL (1.4-7.4); Neutrophils % 91.3 % (38.7-73.9); Platelet Count 131 T/CUMM (130-400); Red Blood Count 3.87 MC/CUMM (3.8-5.5); Red Cell Distribution Width 15.9 % (9.3-17.3); White Blood Count 21.1 T/CUMM (4-12)
[2018-05-04 07:31] LABS: Albumin 3.5 G/DL (3.4-5.0); Bilirubin,Total 0.5 MG/DL (0.2-1.0); Calcium 7.1 MG/DL (8.5-10.1); Lactic Acid 1.4 MMOL/L (0.4-2.0); Osmolality,Calculated 281.7 MOS/KG (273-304); Potassium 4.4 MMOL/L (3.5-5.1); Total Protein 7.1 G/DL (6.4-8.3)
[2018-05-04 07:35] LABS: Anisocytosis Slight; Band Neutrophils 3 % (0-10); Lymphocytes 5 % (20-55); Macrocytosis 3+; Platelet Estimate Normal; Segmented Neutrophils 91 % (50-85); Total Cells Counted 100
[2018-05-04 08:42] LABS: Sedimentation Rate-Westergren 26 MM/HR (0-20)
[2018-05-05 03:46] LABS: Basophils # 0.1 10*3/uL (0.0-0.2); Basophils % 0.3 % (0.0-0.8); Eosinophils % 0.1 % (0.00-10.9); Hematocrit 37.4 VOL% (42.0-52.0); Hemoglobin 12.2 GM/DL (14.0-18.0); Immature Granulocytes % 0.6 %; Lymphocytes # 0.5 10*3/uL (1.4-4.0); Lymphocytes % 3.5 % (21.2-54.2); Mean Corpuscular HGB Conc 32.6 GM/DL (32-36); Mean Corpuscular Hemoglobin 32 PG (27-34); Mean Corpuscular Volume 99.5 FL (87-102); Mean Platelet Volume 10.2 FL (9.6-12.0); Monocytes # 0.8 10*3/uL (0.11-0.8); Monocytes % 5.4 % (1.7-12.7); Neutrophils # 13.9 10*3/uL (1.4-7.4); Neutrophils % 90.1 % (38.7-73.9); Platelet Count 116 T/CUMM (130-400); Red Blood Count 3.76 MC/CUMM (3.8-5.5); Red Cell Distribution Width 15.9 % (9.3-17.3); White Blood Count 15.5 T/CUMM (4-12)
[2018-05-05 03:52] LABS: Risk Ratio 2.01; VLDL CHOLESTEROL 25.4 MG/DL
[2018-05-05 03:53] LABS: Calcium 6.8 MG/DL (8.5-10.1); Potassium 4.5 MMOL/L (3.5-5.1)
[2018-05-05 04:37] LABS: Lymphocytes 11 % (20-55); Macrocytosis 2+; Platelet Estimate Decreased; Segmented Neutrophils 89 % (50-85); Total Cells Counted 100
[2018-05-06 06:19] LABS: Albumin 2.7 G/DL (3.4-5.0); Calcium 6.3 MG/DL (8.5-10.1)
[2018-05-06 06:20] LABS: Osmolality,Calculated 281.1 MOS/KG (273-304); Potassium 5.2 MMOL/L (3.5-5.1)
[2018-05-07 06:28] LABS: Basophils % 0.3 % (0.0-0.8); Eosinophils # 0.2 10*3/uL (0.0-0.87); Eosinophils % 1.9 % (0.00-10.9); Hematocrit 32.7 VOL% (42.0-52.0); Hemoglobin 10.7 GM/DL (14.0-18.0); Immature Granulocytes % 0.6 %; Immature Granulocytes Absolute 0.05 #; Lymphocytes # 0.8 10*3/uL (1.4-4.0); Lymphocytes % 8.9 % (21.2-54.2); Mean Corpuscular HGB Conc 32.7 GM/DL (32-36); Mean Corpuscular Hemoglobin 32 PG (27-34); Mean Corpuscular Volume 97.6 FL (87-102); Mean Platelet Volume 9.8 FL (9.6-12.0); Monocytes # 0.8 10*3/uL (0.11-0.8); Monocytes % 9.3 % (1.7-12.7); Neutrophils # 6.8 10*3/uL (1.4-7.4); Platelet Count 123 T/CUMM (130-400); Red Blood Count 3.35 MC/CUMM (3.8-5.5); White Blood Count 8.6 T/CUMM (4-12)
[2018-05-07 06:55] LABS: Albumin 2.7 G/DL (3.4-5.0); Osmolality,Calculated 278.7 MOS/KG (273-304); Potassium 5.4 MMOL/L (3.5-5.1)
[2018-05-07 06:57] LABS: Calcium 5.8 MG/DL (8.5-10.1)
[2018-05-08 04:51] LABS: Basophils % 0.4 % (0.0-0.8); Eosinophils # 0.2 10*3/uL (0.0-0.87); Eosinophils % 2.1 % (0.00-10.9); Hematocrit 31.9 VOL% (42.0-52.0); Hemoglobin 10.3 GM/DL (14.0-18.0); Immature Granulocytes % 0.7 %; Immature Granulocytes Absolute 0.05 #; Lymphocytes # 0.7 10*3/uL (1.4-4.0); Lymphocytes % 8.9 % (21.2-54.2); Mean Corpuscular HGB Conc 32.3 GM/DL (32-36); Mean Corpuscular Hemoglobin 32 PG (27-34); Mean Corpuscular Volume 99.4 FL (87-102); Mean Platelet Volume 10.4 FL (9.6-12.0); Monocytes # 0.9 10*3/uL (0.11-0.8); Monocytes % 11.4 % (1.7-12.7); Neutrophils # 5.8 10*3/uL (1.4-7.4); Neutrophils % 76.5 % (38.7-73.9); Platelet Count 156 T/CUMM (130-400); Red Blood Count 3.21 MC/CUMM (3.8-5.5); Red Cell Distribution Width 15.8 % (9.3-17.3); White Blood Count 7.5 T/CUMM (4-12)
[2018-05-09 05:41] LABS: Basophils % 0.6 % (0.0-0.8); Eosinophils # 0.2 10*3/uL (0.0-0.87); Eosinophils % 2.3 % (0.00-10.9); Hematocrit 32.4 VOL% (42.0-52.0); Hemoglobin 10.4 GM/DL (14.0-18.0); Immature Granulocytes Absolute 0.07 #; Lymphocytes # 1.1 10*3/uL (1.4-4.0); Lymphocytes % 16.4 % (21.2-54.2); Mean Corpuscular HGB Conc 32.1 GM/DL (32-36); Mean Corpuscular Hemoglobin 32 PG (27-34); Mean Corpuscular Volume 99.1 FL (87-102); Mean Platelet Volume 9.2 FL (9.6-12.0); Monocytes # 0.8 10*3/uL (0.11-0.8); Monocytes % 11.7 % (1.7-12.7); Neutrophils # 4.6 10*3/uL (1.4-7.4); Platelet Count 172 T/CUMM (130-400); Red Blood Count 3.27 MC/CUMM (3.8-5.5); Red Cell Distribution Width 15.7 % (9.3-17.3); White Blood Count 6.8 T/CUMM (4-12)
[2018-05-10 05:32] LABS: Basophils % 0.4 % (0.0-0.8); Eosinophils # 0.1 10*3/uL (0.0-0.87); Eosinophils % 1.9 % (0.00-10.9); Hematocrit 32.9 VOL% (42.0-52.0); Hemoglobin 10.5 GM/DL (14.0-18.0); Immature Granulocytes Absolute 0.07 #; Lymphocytes # 0.7 10*3/uL (1.4-4.0); Lymphocytes % 9.7 % (21.2-54.2); Mean Corpuscular HGB Conc 31.9 GM/DL (32-36); Mean Corpuscular Hemoglobin 32 PG (27-34); Mean Corpuscular Volume 98.8 FL (87-102); Mean Platelet Volume 8.9 FL (9.6-12.0); Monocytes # 0.7 10*3/uL (0.11-0.8); Monocytes % 10.3 % (1.7-12.7); Neutrophils # 5.4 10*3/uL (1.4-7.4); Neutrophils % 76.7 % (38.7-73.9); Platelet Count 193 T/CUMM (130-400); Red Blood Count 3.33 MC/CUMM (3.8-5.5); Red Cell Distribution Width 15.6 % (9.3-17.3)
[2018-05-11 07:22] VITALS: BP 130/70
== END 2018-05-11 15:31 | disposition home health service (06) | DRG 602 ==
LOC: EDUNIT# → EDBD → N.ED 06:01 → N.EDINP 09:05 → N.2E 11:21
PROVIDERS: ADMIT Internal Medicine; ATTEND Internal Medicine

== ENCOUNTER 2018-07-30 14:10 | Observation (INO) ==
[2018-07-30 15:25] LABS: Basophils # 0.1 10*3/uL (0.0-0.2); Basophils % 0.7 % (0.0-0.8); Eosinophils # 0.1 10*3/uL (0.0-0.87); Eosinophils % 0.9 % (0.00-10.9); Hematocrit 34.3 VOL% (42.0-52.0); Hemoglobin 11.1 GM/DL (14.0-18.0); Immature Granulocytes % 0.4 %; Immature Granulocytes Absolute 0.03 #; Lymphocytes # 0.7 10*3/uL (1.4-4.0); Lymphocytes % 10.2 % (21.2-54.2); Mean Corpuscular HGB Conc 32.4 GM/DL (32-36); Mean Corpuscular Hemoglobin 30 PG (27-34); Mean Corpuscular Volume 93.7 FL (87-102); Mean Platelet Volume 9.2 FL (9.6-12.0); Monocytes # 0.5 10*3/uL (0.11-0.8); Monocytes % 7.5 % (1.7-12.7); Neutrophils # 5.5 10*3/uL (1.4-7.4); Neutrophils % 80.3 % (38.7-73.9); Platelet Count 162 T/CUMM (130-400); Red Blood Count 3.66 MC/CUMM (3.8-5.5); Red Cell Distribution Width 16.6 % (9.3-17.3); White Blood Count 6.9 T/CUMM (4-12)
[2018-07-30 16:04] LABS: Alanine Aminotransferase 19 U/L (16-61); Albumin 3.6 G/DL (3.4-5.0); Alkaline Phosphatase 65 U/L (45-117); Aspartate Amino Transferase 20 U/L (0-37); Blood Urea Nitrogen 70 MG/DL (7-18); Calcium 10.3 MG/DL (8.5-10.1); Glucose 91 MG/DL (74-106); Potassium 5.7 MMOL/L (3.5-5.1); Sodium 136 MMOL/L (136-145); Total Protein 7.4 G/DL (6.4-8.3)
[2018-07-30] MEDS ORDERED: ZALEPLON 5 MG CAPSULE PO PRN (18:40)
[2018-07-30] MEDS ORDERED: ACETAMINOPHEN 325 MG TABLET PO PRN (18:40)
[2018-07-30] MEDS ORDERED: ONDANSETRON 4 MG/2 ML VIAL IV PRN (18:40)
[2018-07-30] MEDS ORDERED: PROMETHAZINE 25 MG TABLET PO PRN (18:40)
[2018-07-30] MEDS ORDERED: LIDOCAINE/PRILOCAINE CREAM 5 GM TUBE TOP SCH (19:00)
[2018-07-30 20:01] LABS: Thyroid Stimulating Hormone 1.5 uIU/ml (0.358-3.74)
[2018-07-30] MEDS: GABAPENTIN 600 MG TABLET PO SCH (21:06)
[2018-07-30] MEDS: URSODIOL 300 MG CAPSULE PO SCH (21:06)
[2018-07-30] MEDS: ENOXAPARIN 30 MG/0.3 ML SYRINGE SUBCUT SCH (21:07)
[2018-07-30] MEDS ORDERED: SODIUM POLYSTYRENE SULFATE 15 GM/60 ML BOTTLE PO ONE (23:31)
[2018-07-31 05:19] LABS: Basophils # 0.1 10*3/uL (0.0-0.2); Basophils % 0.9 % (0.0-0.8); Eosinophils # 0.2 10*3/uL (0.0-0.87); Eosinophils % 3.2 % (0.00-10.9); Hematocrit 34.7 VOL% (42.0-52.0); Hemoglobin 11.1 GM/DL (14.0-18.0); Immature Granulocytes % 0.4 %; Immature Granulocytes Absolute 0.02 #; Lymphocytes # 1.2 10*3/uL (1.4-4.0); Lymphocytes % 21.6 % (21.2-54.2); Mean Corpuscular Hemoglobin 30 PG (27-34); Mean Corpuscular Volume 94.6 FL (87-102); Mean Platelet Volume 9.6 FL (9.6-12.0); Monocytes # 0.5 10*3/uL (0.11-0.8); Monocytes % 9.1 % (1.7-12.7); Neutrophils # 3.6 10*3/uL (1.4-7.4); Neutrophils % 64.8 % (38.7-73.9); Platelet Count 162 T/CUMM (130-400); Red Blood Count 3.67 MC/CUMM (3.8-5.5); Red Cell Distribution Width 16.7 % (9.3-17.3); White Blood Count 5.6 T/CUMM (4-12)
[2018-07-31 05:40] LABS: Albumin 3.4 G/DL (3.4-5.0); Bilirubin,Total 0.9 MG/DL (0.2-1.0); Calcium 9.2 MG/DL (8.5-10.1); Osmolality,Calculated 298.5 MOS/KG (273-304); Potassium 5.2 MMOL/L (3.5-5.1); Risk Ratio 2.36; Total Protein 7.2 G/DL (6.4-8.3); VLDL CHOLESTEROL 22.4 MG/DL
[2018-07-31] MEDS: SEVELAMER CARBONATE 800 MG TABLET PO SCH ×4 (07:53→19:18)
[2018-07-31] MEDS: CALCIUM CARBONATE CHEW 500 MG TABLET PO SCH ×3 (07:53→19:19)
[2018-07-31] MEDS ORDERED: LABETALOL 20 MG/4 ML SYRINGE IV PRN (12:07)
[2018-07-31] MEDS: URSODIOL 300 MG CAPSULE PO SCH ×2 (15:53→20:46)
[2018-07-31] MEDS: GABAPENTIN 600 MG TABLET PO SCH ×3 (15:54→23:52)
[2018-07-31] MEDS: MULTIVITAMIN (BEROCCA) TABLET PO SCH (15:54)
[2018-07-31] MEDS: CARVEDILOL 12.5 MG TABLET PO SCH ×2 (18:44→20:46)
[2018-07-31] MEDS: amLODIPine 5 MG TABLET PO SCH (19:20)
[2018-07-31] MEDS: ENOXAPARIN 30 MG/0.3 ML SYRINGE SUBCUT SCH (20:40)
[2018-07-31] MEDS: CALCITRIOL 0.25 MCG CAPSULE PO SCH (20:45)
[2018-07-31] MEDS: PANTOPRAZOLE 40 MG TABLET PO SCH (20:45)
[2018-08-01] MEDS: CALCIUM CARBONATE CHEW 500 MG TABLET PO SCH (10:56)
[2018-08-01] MEDS: SEVELAMER CARBONATE 800 MG TABLET PO SCH (10:57)
[2018-08-01] MEDS: GABAPENTIN 600 MG TABLET PO SCH (10:58)
[2018-08-01] MEDS: CALCITRIOL 0.25 MCG CAPSULE PO SCH (10:59)
[2018-08-01] MEDS: amLODIPine 5 MG TABLET PO SCH (10:59)
[2018-08-01] MEDS: PANTOPRAZOLE 40 MG TABLET PO SCH (10:59)
[2018-08-01] MEDS: CARVEDILOL 12.5 MG TABLET PO SCH (10:59)
[2018-08-01] MEDS: MULTIVITAMIN (BEROCCA) TABLET PO SCH (11:01)
[2018-08-01] MEDS: URSODIOL 300 MG CAPSULE PO SCH (11:01)
[2018-08-01 12:07] VITALS: BP 156/87
== END 2018-08-01 11:48 | disposition home or self-care (01) ==
LOC: EDUNIT# → EDBD → N.ED 14:10 → N.EDINP 14:10 → N.TELES 19:16
PROVIDERS: ADMIT Hospitalist; ATTEND Hospitalist

== ENCOUNTER 2018-08-26 10:37 | Inpatient (IN) ==
[2018-08-26] MEDS ORDERED: LIDOCAINE/PRILOCAINE CREAM 5 GM TUBE TOP SCH (14:00)
[2018-08-26] MEDS: CALCIUM CARBONATE CHEW 500 MG TABLET PO SCH ×2 (15:24→20:53)
[2018-08-26] MEDS: CLINDAMYCIN INJ 600 MG in PREMIX 1 EACH IV SCH ×2 (15:24→21:18)
[2018-08-26] MEDS: GABAPENTIN 600 MG TABLET PO SCH ×2 (15:24→20:53)
[2018-08-26] MEDS: SEVELAMER CARBONATE 800 MG TABLET PO SCH (16:33)
[2018-08-26] MEDS: URSODIOL 300 MG CAPSULE PO SCH (20:53)
[2018-08-26] MEDS: CARVEDILOL 12.5 MG TABLET PO SCH ×2 (20:53→20:58)
[2018-08-27] MEDS: CLINDAMYCIN INJ 600 MG in PREMIX 1 EACH IV SCH ×2 (05:43→14:10)
[2018-08-27 05:44] LABS: Basophils % 0.4 % (0.0-0.8); Eosinophils # 0.2 10*3/uL (0.0-0.87); Eosinophils % 2.1 % (0.00-10.9); Hematocrit 27.7 VOL% (42.0-52.0); Hemoglobin 8.6 GM/DL (14.0-18.0); Immature Granulocytes % 0.5 %; Immature Granulocytes Absolute 0.05 #; Lymphocytes # 0.9 10*3/uL (1.4-4.0); Lymphocytes % 9.4 % (21.2-54.2); Mean Corpuscular Hemoglobin 31 PG (27-34); Mean Corpuscular Volume 99.6 FL (87-102); Mean Platelet Volume 9.2 FL (9.6-12.0); Monocytes # 0.7 10*3/uL (0.11-0.8); Monocytes % 6.5 % (1.7-12.7); Neutrophils # 8.2 10*3/uL (1.4-7.4); Neutrophils % 81.1 % (38.7-73.9); Platelet Count 171 T/CUMM (130-400); Red Blood Count 2.78 MC/CUMM (3.8-5.5)
[2018-08-27 06:03] LABS: Albumin 3.2 G/DL (3.4-5.0); Bilirubin,Total 0.6 MG/DL (0.2-1.0); Osmolality,Calculated 289.1 MOS/KG (273-304); Total Protein 6.7 G/DL (6.4-8.3)
[2018-08-27] MEDS: SEVELAMER CARBONATE 800 MG TABLET PO SCH ×3 (08:23→16:10)
[2018-08-27] MEDS: CALCIUM CARBONATE CHEW 500 MG TABLET PO SCH ×3 (08:24→21:33)
[2018-08-27] MEDS: CALCITRIOL 0.25 MCG CAPSULE PO SCH (08:24)
[2018-08-27] MEDS: CARVEDILOL 12.5 MG TABLET PO SCH ×3 (08:24→16:10)
[2018-08-27] MEDS: amLODIPine 5 MG TABLET PO SCH (08:24)
[2018-08-27] MEDS: MULTIVITAMIN (BEROCCA) TABLET PO SCH (08:24)
[2018-08-27] MEDS: URSODIOL 300 MG CAPSULE PO SCH ×3 (08:25→21:34)
[2018-08-27] MEDS: PANTOPRAZOLE 40 MG TABLET PO SCH (08:25)
[2018-08-27] MEDS: GABAPENTIN 600 MG TABLET PO SCH (08:25)
[2018-08-27] MEDS ORDERED: EPOETIN ALFA 10,000 UNIT/1 ML VIAL IV PRN (08:47)
[2018-08-27] MEDS ORDERED: TUBERCULIN SKIN TEST 0.1 ML SYRINGE INTRADERM ONE (15:59)
[2018-08-27] MEDS ORDERED: POLYETHYLENE GLYCOL 3350/ELECTROLYTES 4,000 ML BOTTLE PO ONE (18:00)
[2018-08-27] MEDS ORDERED: MAGNESIUM CITRATE 300 ML BOTTLE PO ONE (21:00)
[2018-08-27] MEDS: GABAPENTIN 300 MG CAPSULE PO SCH (21:33)
[2018-08-28] MEDS: CLINDAMYCIN INJ 600 MG in PREMIX 1 EACH IV SCH ×4 (00:01→21:20)
[2018-08-28 06:17] LABS: Basophils % 0.5 % (0.0-0.8); Eosinophils # 0.3 10*3/uL (0.0-0.87); Eosinophils % 4.2 % (0.00-10.9); Hematocrit 25.4 VOL% (42.0-52.0); Immature Granulocytes % 0.5 %; Immature Granulocytes Absolute 0.03 #; Lymphocytes % 15.4 % (21.2-54.2); Mean Corpuscular HGB Conc 31.5 GM/DL (32-36); Mean Corpuscular Hemoglobin 32 PG (27-34); Mean Platelet Volume 9.3 FL (9.6-12.0); Monocytes # 0.5 10*3/uL (0.11-0.8); Monocytes % 7.9 % (1.7-12.7); Neutrophils # 4.6 10*3/uL (1.4-7.4); Neutrophils % 71.5 % (38.7-73.9); Platelet Count 144 T/CUMM (130-400); Red Blood Count 2.54 MC/CUMM (3.8-5.5); Red Cell Distribution Width 15.9 % (9.3-17.3); White Blood Count 6.4 T/CUMM (4-12)
[2018-08-28 06:38] LABS: Albumin 3.1 G/DL (3.4-5.0); Bilirubin,Total 0.7 MG/DL (0.2-1.0); Calcium 9.2 MG/DL (8.5-10.1); Osmolality,Calculated 284.7 MOS/KG (273-304); Potassium 5.4 MMOL/L (3.5-5.1); Total Protein 6.6 G/DL (6.4-8.3)
[2018-08-28] MEDS ORDERED: SODIUM CHLORIDE 0.9% 1,000 ML IV PRN (07:35)
[2018-08-28] MEDS: MULTIVITAMIN (BEROCCA) TABLET PO SCH (08:55)
[2018-08-28] MEDS: URSODIOL 300 MG CAPSULE PO SCH ×2 (08:55→21:19)
[2018-08-28] MEDS: CARVEDILOL 12.5 MG TABLET PO SCH ×2 (08:55→16:13)
[2018-08-28] MEDS: amLODIPine 5 MG TABLET PO SCH (08:55)
[2018-08-28] MEDS: SEVELAMER CARBONATE 800 MG TABLET PO SCH ×3 (08:55→16:13)
[2018-08-28] MEDS: PANTOPRAZOLE 40 MG TABLET PO SCH (08:55)
[2018-08-28] MEDS: CALCITRIOL 0.25 MCG CAPSULE PO SCH (08:56)
[2018-08-28] MEDS: CALCIUM CARBONATE CHEW 500 MG TABLET PO SCH ×3 (08:56→21:19)
[2018-08-28] MEDS ORDERED: LIDOCAINE 2% 5 ML VIAL ONE ×2 (09:00→09:09)
[2018-08-28] MEDS ORDERED: PROPOFOL 200 MG/20 ML VIAL IV ONE ×3 (09:00→11:11)
[2018-08-28] MEDS ORDERED: LIDOCAINE 100 MG/5 ML SYRINGE ONE (11:11)
[2018-08-28] MEDS: HYDROCORTISONE 25 MG SUPP RECTAL SCH ×2 (21:00→21:19)
[2018-08-28] MEDS: GABAPENTIN 300 MG CAPSULE PO SCH (21:19)
[2018-08-29] MEDS: CLINDAMYCIN INJ 600 MG in PREMIX 1 EACH IV SCH ×3 (05:54→21:35)
[2018-08-29 06:18] LABS: Basophils % 0.4 % (0.0-0.8); Eosinophils # 0.2 10*3/uL (0.0-0.87); Eosinophils % 3.3 % (0.00-10.9); Hematocrit 31.7 VOL% (42.0-52.0); Immature Granulocytes % 0.6 %; Immature Granulocytes Absolute 0.04 #; Lymphocytes # 0.9 10*3/uL (1.4-4.0); Lymphocytes % 12.9 % (21.2-54.2); Mean Corpuscular HGB Conc 31.5 GM/DL (32-36); Mean Corpuscular Hemoglobin 31 PG (27-34); Mean Corpuscular Volume 97.8 FL (87-102); Mean Platelet Volume 9.5 FL (9.6-12.0); Monocytes # 0.7 10*3/uL (0.11-0.8); Monocytes % 10.2 % (1.7-12.7); Neutrophils # 4.9 10*3/uL (1.4-7.4); Neutrophils % 72.6 % (38.7-73.9); Platelet Count 141 T/CUMM (130-400); Red Blood Count 3.24 MC/CUMM (3.8-5.5); Red Cell Distribution Width 15.9 % (9.3-17.3); White Blood Count 6.7 T/CUMM (4-12)
[2018-08-29] MEDS: SIMETHICONE CHEW 125 MG TABLET PO PRN (06:44)
[2018-08-29 06:48] LABS: Albumin 2.9 G/DL (3.4-5.0); Bilirubin,Total 0.4 MG/DL (0.2-1.0); Calcium 8.6 MG/DL (8.5-10.1); Osmolality,Calculated 282.7 MOS/KG (273-304); Potassium 5.2 MMOL/L (3.5-5.1); Total Protein 6.7 G/DL (6.4-8.3)
[2018-08-29] MEDS: SEVELAMER CARBONATE 800 MG TABLET PO SCH ×3 (08:27→17:06)
[2018-08-29] MEDS: HYDROCORTISONE 25 MG SUPP RECTAL SCH ×3 (08:27→21:33)
[2018-08-29] MEDS: CARVEDILOL 12.5 MG TABLET PO SCH ×2 (08:27→17:13)
[2018-08-29] MEDS: URSODIOL 300 MG CAPSULE PO SCH ×2 (08:27→21:29)
[2018-08-29] MEDS: MULTIVITAMIN (BEROCCA) TABLET PO SCH (08:28)
[2018-08-29] MEDS: PANTOPRAZOLE 40 MG TABLET PO SCH ×2 (08:28→21:30)
[2018-08-29] MEDS: amLODIPine 5 MG TABLET PO SCH (08:28)
[2018-08-29] MEDS: CALCIUM CARBONATE CHEW 500 MG TABLET PO SCH ×3 (08:28→21:29)
[2018-08-29] MEDS: CALCITRIOL 0.25 MCG CAPSULE PO SCH (08:28)
[2018-08-29] MEDS: GABAPENTIN 300 MG CAPSULE PO SCH (21:30)
[2018-08-30] MEDS: SIMETHICONE CHEW 125 MG TABLET PO PRN (01:17)
[2018-08-30 05:40] LABS: Basophils % 0.6 % (0.0-0.8); Eosinophils # 0.2 10*3/uL (0.0-0.87); Eosinophils % 3.8 % (0.00-10.9); Hematocrit 31.4 VOL% (42.0-52.0); Hemoglobin 10.1 GM/DL (14.0-18.0); Immature Granulocytes % 0.6 %; Immature Granulocytes Absolute 0.04 #; Lymphocytes # 1.3 10*3/uL (1.4-4.0); Mean Corpuscular HGB Conc 32.2 GM/DL (32-36); Mean Corpuscular Hemoglobin 31 PG (27-34); Mean Corpuscular Volume 97.5 FL (87-102); Mean Platelet Volume 9.5 FL (9.6-12.0); Monocytes # 0.7 10*3/uL (0.11-0.8); Monocytes % 10.7 % (1.7-12.7); Neutrophils # 4.1 10*3/uL (1.4-7.4); Neutrophils % 64.3 % (38.7-73.9); Platelet Count 160 T/CUMM (130-400); Red Blood Count 3.22 MC/CUMM (3.8-5.5); Red Cell Distribution Width 15.3 % (9.3-17.3); White Blood Count 6.4 T/CUMM (4-12)
[2018-08-30] MEDS: CLINDAMYCIN INJ 600 MG in PREMIX 1 EACH IV SCH (05:50)
[2018-08-30 06:03] LABS: Albumin 3.3 G/DL (3.4-5.0); Bilirubin,Total 0.6 MG/DL (0.2-1.0); Calcium 10.1 MG/DL (8.5-10.1); Osmolality,Calculated 282.1 MOS/KG (273-304); Potassium 5.7 MMOL/L (3.5-5.1); Total Protein 7.2 G/DL (6.4-8.3)
[2018-08-30] MEDS: PANTOPRAZOLE 40 MG TABLET PO SCH (09:54)
[2018-08-30] MEDS: SEVELAMER CARBONATE 800 MG TABLET PO SCH (09:54)
[2018-08-30] MEDS: CALCITRIOL 0.25 MCG CAPSULE PO SCH (09:54)
[2018-08-30] MEDS: CALCIUM CARBONATE CHEW 500 MG TABLET PO SCH (09:54)
[2018-08-30] MEDS: MULTIVITAMIN (BEROCCA) TABLET PO SCH (09:55)
[2018-08-30] MEDS: CARVEDILOL 12.5 MG TABLET PO SCH (09:57)
[2018-08-30] MEDS: URSODIOL 300 MG CAPSULE PO SCH (09:58)
[2018-08-30] MEDS: amLODIPine 5 MG TABLET PO SCH (10:02)
[2018-08-30] MEDS: HYDROCORTISONE 25 MG SUPP RECTAL SCH (10:02)
[2018-08-30 10:33] VITALS: BP 170/70
== END 2018-08-30 10:33 | disposition home or self-care (01) | DRG 393 ==
LOC: N.5E → SUATTDRO 12:52 → OBSVTOIN 12:52
PROVIDERS: ADMIT Internal Medicine; ATTEND Emergency Medicine

== ENCOUNTER 2018-09-23 18:22 | Inpatient (IN) ==
[2018-09-23] MEDS ORDERED: HYDROmorphone 2 MG/1 ML VIAL IV PRN (20:45)
[2018-09-23] MEDS ORDERED: ONDANSETRON 4 MG/2 ML VIAL IV PRN (21:08)
[2018-09-23] MEDS ORDERED: ACETAMINOPHEN 325 MG TABLET PO PRN (21:08)
[2018-09-23] MEDS ORDERED: SIMETHICONE CHEW 125 MG TABLET PO PRN (21:13)
[2018-09-23] MEDS ORDERED: HYDROCORTISONE 25 MG SUPP RECTAL PRN (21:13)
[2018-09-23] MEDS: HYDROmorphone 2 MG/1 ML VIAL IV PRN (21:24)
[2018-09-23] MEDS ORDERED: VANCOMYCIN INJ 1,000 MG in SODIUM CHLORIDE 0.9% 250 ML IV PRN (21:25)
[2018-09-23] MEDS: URSODIOL 300 MG CAPSULE PO SCH ×2 (21:27→21:45)
[2018-09-23] MEDS: DOXEPIN 25 MG CAPSULE PO SCH ×2 (21:28→21:46)
[2018-09-23] MEDS: CALCIUM CARBONATE CHEW 500 MG TABLET PO SCH (21:28)
[2018-09-23] MEDS: MEROPENEM 500 MG in SODIUM CHLORIDE 0.9% 100 ML IV SCH (21:32)
[2018-09-23] MEDS: GABAPENTIN 600 MG TABLET PO SCH ×2 (21:32→21:45)
[2018-09-23] MEDS: HEPARIN 5,000 UNIT/1 ML VIAL SUBCUT SCH (21:33)
[2018-09-23] MEDS ORDERED: VANCOMYCIN INJ 1,000 MG in SODIUM CHLORIDE 0.9% 250 ML IV ONE (22:00)
[2018-09-24] MEDS: HYDROmorphone 2 MG/1 ML VIAL IV PRN ×2 (02:45→06:31)
[2018-09-24 05:24] LABS: Basophils # 0.1 10*3/uL (0.0-0.2); Basophils % 0.6 % (0.0-0.8); Eosinophils # 0.3 10*3/uL (0.0-0.87); Eosinophils % 3.1 % (0.00-10.9); Hematocrit 30.5 VOL% (42.0-52.0); Hemoglobin 9.4 GM/DL (14.0-18.0); Immature Granulocytes % 0.6 %; Immature Granulocytes Absolute 0.06 #; Lymphocytes # 1.1 10*3/uL (1.4-4.0); Lymphocytes % 11.4 % (21.2-54.2); Mean Corpuscular HGB Conc 30.8 GM/DL (32-36); Mean Corpuscular Hemoglobin 31 PG (27-34); Mean Corpuscular Volume 101.3 FL (87-102); Mean Platelet Volume 9.3 FL (9.6-12.0); Monocytes # 0.8 10*3/uL (0.11-0.8); Monocytes % 8.2 % (1.7-12.7); Neutrophils # 7.4 10*3/uL (1.4-7.4); Neutrophils % 76.1 % (38.7-73.9); Platelet Count 218 T/CUMM (130-400); Red Blood Count 3.01 MC/CUMM (3.8-5.5); Red Cell Distribution Width 15.5 % (9.3-17.3); White Blood Count 9.7 T/CUMM (4-12)
[2018-09-24 05:57] LABS: Eosinophils 1 % (0-10); Lymphocytes 9 % (20-55); Segmented Neutrophils 80 % (50-85); Total Cells Counted 100
[2018-09-24 05:58] LABS: Hypochromasia 1+; Macrocytosis Slight; Platelet Estimate Normal
[2018-09-24 06:18] LABS: Albumin 2.9 G/DL (3.4-5.0); Bilirubin,Total 0.6 MG/DL (0.2-1.0); Calcium 6.5 MG/DL (8.5-10.1); Osmolality,Calculated 305.4 MOS/KG (273-304); Potassium 5.8 MMOL/L (3.5-5.1); Total Protein 7.6 G/DL (6.4-8.3)
[2018-09-24] MEDS: HEPARIN 5,000 UNIT/1 ML VIAL SUBCUT SCH ×3 (06:19→21:37)
[2018-09-24] MEDS ORDERED: LIDOCAINE/PRILOCAINE CREAM 5 GM TUBE TOP PRN (08:34)
[2018-09-24] MEDS: PANTOPRAZOLE 40 MG TABLET PO SCH (08:40)
[2018-09-24] MEDS: CALCIUM CARBONATE CHEW 500 MG TABLET PO SCH ×2 (08:40→17:18)
[2018-09-24] MEDS: URSODIOL 300 MG CAPSULE PO SCH ×2 (08:40→21:37)
[2018-09-24] MEDS: GABAPENTIN 600 MG TABLET PO SCH ×3 (08:40→21:36)
[2018-09-24] MEDS ORDERED: INFLUENZA VIRUS VACCINE 0.5 ML SYRINGE IM ONE (09:00)
[2018-09-24] MEDS ORDERED: VANCOMYCIN INJ 500 MG in SODIUM CHLORIDE 0.9% 100 ML IV PRN (09:36)
[2018-09-24] MEDS ORDERED: VANCOMYCIN INJ 1,000 MG in SODIUM CHLORIDE 0.9% 250 ML IV ONE (10:00)
[2018-09-24] MEDS: MEROPENEM 500 MG in SODIUM CHLORIDE 0.9% 100 ML IV SCH (21:39)
[2018-09-25] MEDS: DOXEPIN 25 MG CAPSULE PO SCH ×2 (04:10→20:31)
[2018-09-25] MEDS: HEPARIN 5,000 UNIT/1 ML VIAL SUBCUT SCH ×3 (05:16→20:40)
[2018-09-25] MEDS: CALCIUM CARBONATE CHEW 500 MG TABLET PO SCH ×5 (05:19→20:31)
[2018-09-25 05:51] LABS: Basophils # 0.1 10*3/uL (0.0-0.2); Basophils % 0.6 % (0.0-0.8); Eosinophils # 0.1 10*3/uL (0.0-0.87); Eosinophils % 1.6 % (0.00-10.9); Hematocrit 29.6 VOL% (42.0-52.0); Immature Granulocytes % 0.6 %; Immature Granulocytes Absolute 0.05 #; Lymphocytes % 11.1 % (21.2-54.2); Mean Corpuscular HGB Conc 30.4 GM/DL (32-36); Mean Corpuscular Hemoglobin 31 PG (27-34); Mean Corpuscular Volume 100.3 FL (87-102); Mean Platelet Volume 9.3 FL (9.6-12.0); Monocytes # 0.8 10*3/uL (0.11-0.8); Monocytes % 8.8 % (1.7-12.7); Neutrophils % 77.3 % (38.7-73.9); Platelet Count 209 T/CUMM (130-400); Red Blood Count 2.95 MC/CUMM (3.8-5.5); Red Cell Distribution Width 15.2 % (9.3-17.3)
[2018-09-25 06:21] LABS: Calcium 6.9 MG/DL (8.5-10.1); Osmolality,Calculated 288.7 MOS/KG (273-304); Potassium 5.4 MMOL/L (3.5-5.1)
[2018-09-25] MEDS: GABAPENTIN 600 MG TABLET PO SCH ×4 (07:50→20:31)
[2018-09-25] MEDS: PANTOPRAZOLE 40 MG TABLET PO SCH ×2 (07:50→11:18)
[2018-09-25] MEDS: URSODIOL 300 MG CAPSULE PO SCH ×3 (07:50→20:32)
[2018-09-25] MEDS: HYDROmorphone 2 MG/1 ML VIAL IV PRN ×2 (18:29→22:20)
[2018-09-25] MEDS: MEROPENEM 500 MG in SODIUM CHLORIDE 0.9% 100 ML IV SCH (20:41)
[2018-09-26] MEDS: HYDROmorphone 2 MG/1 ML VIAL IV PRN (02:39)
[2018-09-26] MEDS: HEPARIN 5,000 UNIT/1 ML VIAL SUBCUT SCH ×3 (05:36→22:20)
[2018-09-26] MEDS: PANTOPRAZOLE 40 MG TABLET PO SCH (13:58)
[2018-09-26] MEDS: CALCIUM CARBONATE CHEW 500 MG TABLET PO SCH ×3 (13:58→22:20)
[2018-09-26] MEDS: GABAPENTIN 600 MG TABLET PO SCH ×3 (13:58→22:20)
[2018-09-26] MEDS: URSODIOL 300 MG CAPSULE PO SCH ×2 (14:04→22:20)
[2018-09-26] MEDS: LISINOPRIL 10 MG TABLET PO SCH ×2 (14:04→22:20)
[2018-09-26] MEDS: ALBUTEROL/IPRATROPIUM 3 ML NEB RESP TX SCH ×2 (14:07→19:49)
[2018-09-26] MEDS ORDERED: VANCOMYCIN INJ 500 MG in SODIUM CHLORIDE 0.9% 100 ML IV ONE (17:00)
[2018-09-26] MEDS: DOXEPIN 25 MG CAPSULE PO SCH (22:20)
[2018-09-26] MEDS: MEROPENEM 500 MG in SODIUM CHLORIDE 0.9% 100 ML IV SCH (22:21)
[2018-09-27] MEDS: ALBUTEROL/IPRATROPIUM 3 ML NEB RESP TX SCH ×4 (00:32→19:31)
[2018-09-27 05:17] LABS: Basophils % 0.3 % (0.0-0.8); Eosinophils # 0.2 10*3/uL (0.0-0.87); Eosinophils % 1.9 % (0.00-10.9); Immature Granulocytes % 0.7 %; Immature Granulocytes Absolute 0.06 #; Lymphocytes # 0.7 10*3/uL (1.4-4.0); Lymphocytes % 7.7 % (21.2-54.2); Mean Corpuscular HGB Conc 30.8 GM/DL (32-36); Mean Corpuscular Hemoglobin 31 PG (27-34); Mean Platelet Volume 9.3 FL (9.6-12.0); Monocytes # 0.8 10*3/uL (0.11-0.8); Monocytes % 9.2 % (1.7-12.7); Neutrophils # 7.3 10*3/uL (1.4-7.4); Neutrophils % 80.2 % (38.7-73.9); Platelet Count 171 T/CUMM (130-400); Red Cell Distribution Width 14.8 % (9.3-17.3); White Blood Count 9.1 T/CUMM (4-12)
[2018-09-27 05:21] LABS: Calcium 7.4 MG/DL (8.5-10.1); Osmolality,Calculated 287.8 MOS/KG (273-304); Potassium 4.9 MMOL/L (3.5-5.1)
[2018-09-27] MEDS: HEPARIN 5,000 UNIT/1 ML VIAL SUBCUT SCH ×3 (06:39→21:12)
[2018-09-27] MEDS: CALCIUM CARBONATE CHEW 500 MG TABLET PO SCH ×2 (09:43→15:42)
[2018-09-27] MEDS: PANTOPRAZOLE 40 MG TABLET PO SCH (09:44)
[2018-09-27] MEDS: GABAPENTIN 600 MG TABLET PO SCH ×3 (09:44→21:12)
[2018-09-27] MEDS: URSODIOL 300 MG CAPSULE PO SCH ×2 (09:44→21:12)
[2018-09-27] MEDS: LISINOPRIL 10 MG TABLET PO SCH ×2 (09:44→21:12)
[2018-09-27 11:20] LABS: Lactic Acid 0.7 MMOL/L (0.4-2.0)
[2018-09-27] MEDS: MEROPENEM 500 MG in SODIUM CHLORIDE 0.9% 100 ML IV SCH (21:11)
[2018-09-27] MEDS: DOXEPIN 25 MG CAPSULE PO SCH (21:12)
[2018-09-27] MEDS: HYDROmorphone 2 MG/1 ML VIAL IV PRN (21:12)
[2018-09-28] MEDS: ALBUTEROL/IPRATROPIUM 3 ML NEB RESP TX SCH ×4 (00:37→18:58)
[2018-09-28] MEDS: CALCIUM CARBONATE CHEW 500 MG TABLET PO SCH ×4 (00:43→21:33)
[2018-09-28] MEDS: HYDROmorphone 2 MG/1 ML VIAL IV PRN ×2 (04:25→16:55)
[2018-09-28] MEDS: HEPARIN 5,000 UNIT/1 ML VIAL SUBCUT SCH ×3 (04:29→21:39)
[2018-09-28 05:20] LABS: Calcium 7.7 MG/DL (8.5-10.1); Osmolality,Calculated 290.1 MOS/KG (273-304); Potassium 5.8 MMOL/L (3.5-5.1)
[2018-09-28 05:24] LABS: Basophils % 0.2 % (0.0-0.8); Eosinophils # 0.2 10*3/uL (0.0-0.87); Eosinophils % 2.2 % (0.00-10.9); Hematocrit 25.9 VOL% (42.0-52.0); Hemoglobin 8.2 GM/DL (14.0-18.0); Immature Granulocytes % 0.9 %; Immature Granulocytes Absolute 0.09 #; Lymphocytes # 0.5 10*3/uL (1.4-4.0); Lymphocytes % 4.6 % (21.2-54.2); Mean Corpuscular HGB Conc 31.7 GM/DL (32-36); Mean Corpuscular Hemoglobin 31 PG (27-34); Mean Corpuscular Volume 98.5 FL (87-102); Mean Platelet Volume 9.2 FL (9.6-12.0); Monocytes # 0.8 10*3/uL (0.11-0.8); Monocytes % 7.5 % (1.7-12.7); Neutrophils # 8.9 10*3/uL (1.4-7.4); Neutrophils % 84.6 % (38.7-73.9); Platelet Count 185 T/CUMM (130-400); Red Blood Count 2.63 MC/CUMM (3.8-5.5); Red Cell Distribution Width 14.8 % (9.3-17.3); White Blood Count 10.5 T/CUMM (4-12)
[2018-09-28 06:25] LABS: Hypochromasia 1+; Lymphocytes 3 % (20-55); Microcytosis 1+; Platelet Estimate Adequate; Segmented Neutrophils 94 % (50-85); Total Cells Counted 100
[2018-09-28 06:26] LABS: Polychromasia Few
[2018-09-28] MEDS: URSODIOL 300 MG CAPSULE PO SCH ×2 (10:22→21:34)
[2018-09-28] MEDS: LISINOPRIL 10 MG TABLET PO SCH ×2 (10:22→21:34)
[2018-09-28] MEDS: GABAPENTIN 600 MG TABLET PO SCH ×3 (10:22→21:34)
[2018-09-28] MEDS: PANTOPRAZOLE 40 MG TABLET PO SCH (10:23)
[2018-09-28] MEDS ORDERED: VANCOMYCIN INJ 500 MG in SODIUM CHLORIDE 0.9% 100 ML IV ONE (17:00)
[2018-09-28] MEDS: MEROPENEM 500 MG in SODIUM CHLORIDE 0.9% 100 ML IV SCH (21:33)
[2018-09-28] MEDS: DOXEPIN 25 MG CAPSULE PO SCH (21:34)
[2018-09-29] MEDS: ALBUTEROL/IPRATROPIUM 3 ML NEB RESP TX SCH ×4 (00:10→19:11)
[2018-09-29 06:20] LABS: Basophils % 0.4 % (0.0-0.8); Eosinophils # 0.2 10*3/uL (0.0-0.87); Eosinophils % 1.8 % (0.00-10.9); Hematocrit 27.9 VOL% (42.0-52.0); Hemoglobin 8.7 GM/DL (14.0-18.0); Immature Granulocytes % 0.7 %; Immature Granulocytes Absolute 0.07 #; Lymphocytes # 0.7 10*3/uL (1.4-4.0); Lymphocytes % 6.7 % (21.2-54.2); Mean Corpuscular HGB Conc 31.2 GM/DL (32-36); Mean Corpuscular Hemoglobin 31 PG (27-34); Mean Corpuscular Volume 99.6 FL (87-102); Mean Platelet Volume 8.8 FL (9.6-12.0); Monocytes % 9.5 % (1.7-12.7); Neutrophils # 8.6 10*3/uL (1.4-7.4); Neutrophils % 80.9 % (38.7-73.9); Platelet Count 197 T/CUMM (130-400); Red Cell Distribution Width 14.8 % (9.3-17.3); White Blood Count 10.6 T/CUMM (4-12)
[2018-09-29] MEDS: HEPARIN 5,000 UNIT/1 ML VIAL SUBCUT SCH ×3 (06:24→21:40)
[2018-09-29 06:35] LABS: Calcium 7.9 MG/DL (8.5-10.1); Potassium 5.4 MMOL/L (3.5-5.1)
[2018-09-29] MEDS ORDERED: SODIUM POLYSTYRENE SULFATE 15 GM/60 ML BOTTLE PO ONE (08:31)
[2018-09-29] MEDS ORDERED: SODIUM POLYSTYRENE SULFATE 15 GM/60 ML BOTTLE PO STA (08:34)
[2018-09-29] MEDS: PANTOPRAZOLE 40 MG TABLET PO SCH (08:59)
[2018-09-29] MEDS: CALCIUM CARBONATE CHEW 500 MG TABLET PO SCH ×3 (08:59→21:34)
[2018-09-29] MEDS: LISINOPRIL 10 MG TABLET PO SCH ×2 (08:59→21:35)
[2018-09-29] MEDS: URSODIOL 300 MG CAPSULE PO SCH ×2 (08:59→21:35)
[2018-09-29] MEDS: GABAPENTIN 600 MG TABLET PO SCH ×3 (08:59→21:41)
[2018-09-29] MEDS ORDERED: NALOXONE 0.4 MG/ML VIAL IV ONE (14:08)
[2018-09-29] MEDS ORDERED: niCARdipine INJ 25 MG in SODIUM CHLORIDE 0.9% 240 ML IV PRN (14:13)
[2018-09-29] MEDS: MEROPENEM 500 MG in SODIUM CHLORIDE 0.9% 100 ML IV SCH (21:36)
[2018-09-29] MEDS: DOXEPIN 25 MG CAPSULE PO SCH (21:40)
[2018-09-30] MEDS: ALBUTEROL/IPRATROPIUM 3 ML NEB RESP TX SCH ×4 (01:05→20:26)
[2018-09-30] MEDS: HEPARIN 5,000 UNIT/1 ML VIAL SUBCUT SCH ×3 (05:31→21:22)
[2018-09-30] MEDS: CALCIUM CARBONATE CHEW 500 MG TABLET PO SCH ×4 (08:44→21:21)
[2018-09-30] MEDS: URSODIOL 300 MG CAPSULE PO SCH ×3 (08:44→21:21)
[2018-09-30] MEDS: LISINOPRIL 10 MG TABLET PO SCH ×2 (08:44→21:21)
[2018-09-30] MEDS: GABAPENTIN 600 MG TABLET PO SCH ×2 (08:44→09:23)
[2018-09-30] MEDS: PANTOPRAZOLE 40 MG TABLET PO SCH ×2 (08:44→09:24)
[2018-10-01] MEDS: ALBUTEROL/IPRATROPIUM 3 ML NEB RESP TX SCH ×2 (01:22→10:55)
[2018-10-01] MEDS: HEPARIN 5,000 UNIT/1 ML VIAL SUBCUT SCH ×2 (05:45→14:43)
[2018-10-01] MEDS: URSODIOL 300 MG CAPSULE PO SCH (08:25)
[2018-10-01] MEDS: LISINOPRIL 10 MG TABLET PO SCH (08:25)
[2018-10-01] MEDS: CALCIUM CARBONATE CHEW 500 MG TABLET PO SCH ×2 (08:25→14:42)
[2018-10-01] MEDS: PANTOPRAZOLE 40 MG TABLET PO SCH (08:25)
[2018-10-01 13:13] VITALS: BP 151/88
== END 2018-10-01 14:55 | disposition home health service (06) | DRG 602 ==
LOC: N.5E → SUATTDRO 20:00
PROVIDERS: ADMIT Internal Medicine; ATTEND Internal Medicine

== ENCOUNTER 2018-11-10 07:28 | Inpatient (IN) ==
[2018-11-10] MEDS ORDERED: ONDANSETRON 4 MG/2 ML VIAL IV STA (08:07)
[2018-11-10] MEDS ORDERED: MORPHINE 10 MG/1 ML VIAL IV STA (08:21)
[2018-11-10] MEDS ORDERED: MORPHINE 4 MG/1 ML VIAL ONE (08:22)
[2018-11-10 08:26] LABS: Basophils # 0.1 10*3/uL (0.0-0.2); Basophils % 0.6 % (0.0-0.8); Eosinophils # 0.3 10*3/uL (0.0-0.87); Eosinophils % 2.8 % (0.00-10.9); Hematocrit 31.9 VOL% (42.0-52.0); Hemoglobin 9.7 GM/DL (14.0-18.0); Immature Granulocytes % 0.6 %; Immature Granulocytes Absolute 0.07 #; Lymphocytes # 1.1 10*3/uL (1.4-4.0); Lymphocytes % 10.3 % (21.2-54.2); Mean Corpuscular HGB Conc 30.4 GM/DL (32-36); Mean Corpuscular Hemoglobin 30 PG (27-34); Mean Corpuscular Volume 97.6 FL (87-102); Mean Platelet Volume 9.7 FL (9.6-12.0); Monocytes # 0.5 10*3/uL (0.11-0.8); Neutrophils # 8.8 10*3/uL (1.4-7.4); Neutrophils % 80.7 % (38.7-73.9); Platelet Count 205 T/CUMM (130-400); Red Blood Count 3.27 MC/CUMM (3.8-5.5); Red Cell Distribution Width 17.3 % (9.3-17.3); White Blood Count 10.9 T/CUMM (4-12)
[2018-11-10 08:45] LABS: Albumin 3.7 G/DL (3.4-5.0); Bilirubin,Total 0.4 MG/DL (0.2-1.0); Calcium 8.5 MG/DL (8.5-10.1); Osmolality,Calculated 295.8 MOS/KG (273-304); Potassium 5.5 MMOL/L (3.5-5.1); Total Protein 8.1 G/DL (6.4-8.3)
[2018-11-10] MEDS ORDERED: ACETAMINOPHEN 325 MG TABLET PO PRN (10:33)
[2018-11-10] MEDS ORDERED: traMADol 50 MG TABLET PO PRN (10:43)
[2018-11-10] MEDS ORDERED: LIDOCAINE/PRILOCAINE CREAM 5 GM TUBE TOP PRN (10:43)
[2018-11-10] MEDS ORDERED: ENOXAPARIN 80 MG/0.8 ML SYRINGE SUBCUT SCH (11:00)
[2018-11-10] MEDS ORDERED: MEROPENEM 500 MG in SODIUM CHLORIDE 0.9% 100 ML IV SCH (11:32)
[2018-11-10] MEDS ORDERED: LABETALOL 20 MG/4 ML SYRINGE IV PRN (11:32)
[2018-11-10] MEDS ORDERED: cloNIDine 0.3 MG/24 HR PATCH TRANSDERM SCH (11:32)
[2018-11-10] MEDS ORDERED: EPOETIN ALFA 2,000 UNIT/1 ML VIAL IV PRN (11:43)
[2018-11-10] MEDS: PANTOPRAZOLE 40 MG VIAL IV SCH (15:16)
[2018-11-10] MEDS: MEROPENEM 500 MG in SODIUM CHLORIDE 0.9% 100 ML IV SCH (15:17)
[2018-11-10] MEDS: THIAMINE 200 MG/2 ML VIAL IV SCH (15:17)
[2018-11-10] MEDS: HYDROmorphone 2 MG/1 ML VIAL IV PRN ×3 (15:28→23:44)
[2018-11-10] MEDS: traZODone 50 MG TABLET PO PRN (20:22)
[2018-11-10] MEDS: HEPARIN 5,000 UNIT/1 ML VIAL SUBCUT SCH (20:22)
[2018-11-10] MEDS: DOXEPIN 25 MG CAPSULE PO SCH (20:22)
[2018-11-10] MEDS: GABAPENTIN 400 MG CAPSULE PO SCH (20:22)
[2018-11-11] MEDS: ONDANSETRON 4 MG/2 ML VIAL IV PRN ×2 (00:57→21:18)
[2018-11-11] MEDS: HYDROmorphone 2 MG/1 ML VIAL IV PRN ×4 (03:48→21:18)
[2018-11-11 05:43] LABS: Troponin I < 0.015 NG/ML (0.00-0.045)
[2018-11-11 09:21] LABS: Troponin I 0.019 NG/ML (0.00-0.045)
[2018-11-11] MEDS: CALCITRIOL 0.25 MCG CAPSULE PO SCH (09:28)
[2018-11-11] MEDS: THIAMINE 200 MG/2 ML VIAL IV SCH (09:28)
[2018-11-11] MEDS: PANTOPRAZOLE 40 MG VIAL IV SCH (09:28)
[2018-11-11] MEDS: HEPARIN 5,000 UNIT/1 ML VIAL SUBCUT SCH ×2 (09:28→20:14)
[2018-11-11] MEDS: MEROPENEM 500 MG in SODIUM CHLORIDE 0.9% 100 ML IV SCH (17:12)
[2018-11-11] MEDS: DOXEPIN 25 MG CAPSULE PO SCH (20:14)
[2018-11-11] MEDS: GABAPENTIN 400 MG CAPSULE PO SCH (20:14)
[2018-11-11] MEDS: traZODone 50 MG TABLET PO PRN (20:14)
[2018-11-12] MEDS: HYDROmorphone 2 MG/1 ML VIAL IV PRN ×5 (01:46→22:22)
[2018-11-12] MEDS: ONDANSETRON 4 MG/2 ML VIAL IV PRN (01:48)
[2018-11-12 04:18] LABS: Basophils % 0.4 % (0.0-0.8); Eosinophils # 0.3 10*3/uL (0.0-0.87); Eosinophils % 3.9 % (0.00-10.9); Hematocrit 25.4 VOL% (42.0-52.0); Hemoglobin 7.7 GM/DL (14.0-18.0); Immature Granulocytes % 0.6 %; Immature Granulocytes Absolute 0.04 #; Lymphocytes # 0.7 10*3/uL (1.4-4.0); Lymphocytes % 9.4 % (21.2-54.2); Mean Corpuscular HGB Conc 30.3 GM/DL (32-36); Mean Corpuscular Hemoglobin 30 PG (27-34); Mean Corpuscular Volume 98.1 FL (87-102); Mean Platelet Volume 9.3 FL (9.6-12.0); Monocytes # 0.4 10*3/uL (0.11-0.8); Monocytes % 6.4 % (1.7-12.7); Neutrophils # 5.5 10*3/uL (1.4-7.4); Neutrophils % 79.3 % (38.7-73.9); Platelet Count 181 T/CUMM (130-400); Red Blood Count 2.59 MC/CUMM (3.8-5.5); Red Cell Distribution Width 17.5 % (9.3-17.3); White Blood Count 6.9 T/CUMM (4-12)
[2018-11-12 04:45] LABS: Calcium 7.3 MG/DL (8.5-10.1); Osmolality,Calculated 287.2 MOS/KG (273-304)
[2018-11-12 04:52] LABS: Potassium 6.2 MMOL/L (3.5-5.1)
[2018-11-12] MEDS: THIAMINE 200 MG/2 ML VIAL IV SCH (09:37)
[2018-11-12] MEDS: CALCITRIOL 0.25 MCG CAPSULE PO SCH (09:37)
[2018-11-12] MEDS: PANTOPRAZOLE 40 MG VIAL IV SCH (09:38)
[2018-11-12] MEDS: HEPARIN 5,000 UNIT/1 ML VIAL SUBCUT SCH ×2 (09:38→22:21)
[2018-11-12] MEDS ORDERED: SODIUM POLYSTYRENE SULFATE 15 GM/60 ML BOTTLE PO STA (10:01)
[2018-11-12] MEDS: MEROPENEM 500 MG in SODIUM CHLORIDE 0.9% 100 ML IV SCH (17:24)
[2018-11-12] MEDS: DOXEPIN 25 MG CAPSULE PO SCH (22:21)
[2018-11-12] MEDS: GABAPENTIN 400 MG CAPSULE PO SCH (22:22)
[2018-11-13] MEDS: HYDROmorphone 2 MG/1 ML VIAL IV PRN ×3 (02:46→16:58)
[2018-11-13] MEDS: THIAMINE 200 MG/2 ML VIAL IV SCH (09:19)
[2018-11-13] MEDS: PANTOPRAZOLE 40 MG VIAL IV SCH (09:20)
[2018-11-13] MEDS: CALCITRIOL 0.25 MCG CAPSULE PO SCH (09:22)
[2018-11-13] MEDS: HEPARIN 5,000 UNIT/1 ML VIAL SUBCUT SCH ×2 (09:23→21:57)
[2018-11-13] MEDS: MEROPENEM 500 MG in SODIUM CHLORIDE 0.9% 100 ML IV SCH (17:00)
[2018-11-13] MEDS: DOXEPIN 25 MG CAPSULE PO SCH (21:57)
[2018-11-13] MEDS: GABAPENTIN 400 MG CAPSULE PO SCH (21:57)
[2018-11-13] MEDS: ONDANSETRON 4 MG/2 ML VIAL IV PRN (22:03)
[2018-11-14 07:34] LABS: Basophils % 0.5 % (0.0-0.8); Eosinophils # 0.2 10*3/uL (0.0-0.87); Eosinophils % 2.1 % (0.00-10.9); Hematocrit 28.3 VOL% (42.0-52.0); Hemoglobin 8.7 GM/DL (14.0-18.0); Immature Granulocytes % 0.8 %; Immature Granulocytes Absolute 0.06 #; Lymphocytes # 0.8 10*3/uL (1.4-4.0); Lymphocytes % 10.2 % (21.2-54.2); Mean Corpuscular HGB Conc 30.7 GM/DL (32-36); Mean Corpuscular Hemoglobin 29 PG (27-34); Mean Platelet Volume 8.8 FL (9.6-12.0); Monocytes # 0.4 10*3/uL (0.11-0.8); Monocytes % 5.7 % (1.7-12.7); Neutrophils # 6.2 10*3/uL (1.4-7.4); Neutrophils % 80.7 % (38.7-73.9); Platelet Count 195 T/CUMM (130-400); Red Blood Count 2.98 MC/CUMM (3.8-5.5); Red Cell Distribution Width 17.3 % (9.3-17.3); White Blood Count 7.7 T/CUMM (4-12)
[2018-11-14 08:00] LABS: Calcium 7.1 MG/DL (8.5-10.1); Osmolality,Calculated 286.2 MOS/KG (273-304); Potassium 5.1 MMOL/L (3.5-5.1)
[2018-11-14] MEDS: CALCITRIOL 0.25 MCG CAPSULE PO SCH (09:32)
[2018-11-14] MEDS: PANTOPRAZOLE 40 MG VIAL IV SCH (09:33)
[2018-11-14] MEDS: THIAMINE 200 MG/2 ML VIAL IV SCH (09:36)
[2018-11-14] MEDS: HEPARIN 5,000 UNIT/1 ML VIAL SUBCUT SCH (09:37)
[2018-11-14 15:27] VITALS: BP 142/84
== END 2018-11-14 15:16 | disposition home or self-care (01) | DRG 291 ==
LOC: EDUNIT# → EDBD → N.ED 07:28 → N.EDINP 10:03 → SUATTDRO 10:03 → N.5E 10:22
PROVIDERS: ADMIT Family Medicine; ATTEND Hospitalist

== ENCOUNTER 2019-01-05 08:02 | Inpatient (IN) ==
[2019-01-05] MEDS ORDERED: LIDOCAINE 1%/EPI INJ 20 ML VIAL ONE ×3 (08:09→21:09)
[2019-01-05] MEDS ORDERED: SODIUM CHLORIDE 0.9% 1,000 ML IV PRN (08:25)
[2019-01-05] MEDS ORDERED: SODIUM CHLORIDE 0.9% 500 ML IV STA (08:26)
[2019-01-05 09:03] LABS: Basophils # 0.1 10*3/uL (0.0-0.2); Basophils % 0.5 % (0.0-0.8); Eosinophils # 0.1 10*3/uL (0.0-0.87); Eosinophils % 0.8 % (0.00-10.9); Hematocrit 39.7 VOL% (42.0-52.0); Hemoglobin 12.2 GM/DL (14.0-18.0); Immature Granulocytes % 0.8 %; Immature Granulocytes Absolute 0.14 #; Lymphocytes # 1.3 10*3/uL (1.4-4.0); Lymphocytes % 7.3 % (21.2-54.2); Mean Corpuscular HGB Conc 30.7 GM/DL (32-36); Mean Corpuscular Hemoglobin 29 PG (27-34); Mean Corpuscular Volume 94.1 FL (87-102); Mean Platelet Volume 9.7 FL (9.6-12.0); Monocytes # 0.8 10*3/uL (0.11-0.8); Monocytes % 4.5 % (1.7-12.7); Neutrophils # 15.8 10*3/uL (1.4-7.4); Neutrophils % 86.1 % (38.7-73.9); Platelet Count 204 T/CUMM (130-400); Red Blood Count 4.22 MC/CUMM (3.8-5.5); Red Cell Distribution Width 17.2 % (9.3-17.3); White Blood Count 18.3 T/CUMM (4-12)
[2019-01-05] MEDS ORDERED: VANCOMYCIN INJ 1,000 MG in SODIUM CHLORIDE 0.9% 250 ML IV STA (09:04)
[2019-01-05 09:08] LABS: INR 1.1; PT Patient Result 12.2 SECS; Partial Thromboplastin Time 29.4 SECS (0-40)
[2019-01-05 09:13] LABS: Calcium 7.7 MG/DL (8.5-10.1)
[2019-01-05 09:18] LABS: Potassium 6.6 MMOL/L (3.5-5.1)
[2019-01-05] MEDS ORDERED: ACETAMINOPHEN 325 MG TABLET PO PRN (11:02)
[2019-01-05] MEDS ORDERED: PANTOPRAZOLE 40 MG TABLET PO SCH (11:30)
[2019-01-05] MEDS ORDERED: EPOETIN ALFA 2,000 UNIT/1 ML VIAL IV PRN (13:15)
[2019-01-05] MEDS ORDERED: TISSUE ADHESIVE 1 EACH APPLICATOR TOP ONE (15:58)
[2019-01-05] MEDS ORDERED: BUPIVACAINE 0.5% 50 ML VIAL ONE ×2 (15:58→21:09)
[2019-01-05] MEDS ORDERED: HEPARIN 5,000 UNIT/1 ML VIAL ONE ×2 (15:58→21:09)
[2019-01-05] MEDS ORDERED: VANCOMYCIN 1,000 MG VIAL ONE (17:02)
[2019-01-05] MEDS ORDERED: PROPOFOL 200 MG/20 ML VIAL IV ONE ×2 (18:24→22:54)
[2019-01-05] MEDS ORDERED: CALCIUM CHLORIDE 1,000 MG/10 ML VIAL IV ONE ×2 (18:25→22:54)
[2019-01-05] MEDS ORDERED: SODIUM CHLORIDE 0.9% 200 ML IV ONE (18:25)
[2019-01-05] MEDS ORDERED: KETAMINE 500 MG/10 ML VIAL ONE ×2 (18:25→22:53)
[2019-01-05] MEDS ORDERED: ALTEPLASE 2 MG VIAL INTRACATH ONE ×2 (19:04→19:05)
[2019-01-05] MEDS ORDERED: THROMBIN TOPICAL (RECOMBINANT) 5,000 UNIT VIAL TOP ONE (21:09)
[2019-01-05] MEDS ORDERED: PHENYLEPHRINE DRIP 40 MG/250 ML PREMIX IV ONE (22:50)
[2019-01-05] MEDS ORDERED: ePHEDrine 50 MG/ML AMP ONE (22:53)
[2019-01-05] MEDS ORDERED: EPINEPHrine 1 MG/ML VIAL ONE (22:54)
[2019-01-05] MEDS ORDERED: PHENYLEPHRINE DRIP 20 MG/250 ML PREMIX IV ONE (22:54)
[2019-01-05] MEDS ORDERED: PHENYLEPHRINE 1 MG/10 ML SYRINGE IV ONE (22:55)
[2019-01-05] MEDS ORDERED: NOREPINEPHRINE 8 MG in SODIUM CHLORIDE 0.9% 242 ML IV PRN (22:58)
[2019-01-05] MEDS ORDERED: NOREPINEPHRINE 4 MG/4 ML VIAL IV ONE (23:00)
[2019-01-05] MEDS ORDERED: LORazepam 2 MG/1 ML VIAL ONE (23:13)
[2019-01-05] MEDS ORDERED: MIDAZOLAM 2 MG/2 ML VIAL IV ONE (23:30)
[2019-01-05] MEDS ORDERED: MIDAZOLAM 10 MG/2 ML VIAL ONE (23:30)
[2019-01-05] MEDS ORDERED: PHENYLEPHRINE DRIP 40 MG/250 ML PREMIX IV PRN (23:34)
[2019-01-05 23:37] LABS: ABG Base Excess -12.6 MMOL/L (-2.5-2.5); ABG HCO3 14.3 MMOL/L (20-26); ABG Oxygen Saturation 99.4 % (95-100); ABG PCO2 49.5 MM HG (35-48); ABG TCO2 15.8 MMOL/L (23-27)
[2019-01-05] MEDS ORDERED: DOPamine 800 MG/250 ML PREMIX IV ONE (23:43)
[2019-01-05 23:44] LABS: ABG PH 7.118 (7.35-7.45)
[2019-01-05] MEDS: VASOPRESSIN 100 UNITS in SODIUM CHLORIDE 0.9% 95 ML IV SCH (23:51)
[2019-01-06] MEDS ORDERED: SODIUM BICARBONATE 50 MEQ/50 ML VIAL IV ONE ×5 (00:36→03:35)
[2019-01-06] MEDS ORDERED: MIDAZOLAM 100 MG in SODIUM CHLORIDE 0.9% 80 ML IV PRN (00:36)
[2019-01-06] MEDS ORDERED: ALBUMIN 25% 25 GM in PREMIX 1 EACH IV ONE (01:00)
[2019-01-06] MEDS ORDERED: EPINEPHrine 1 MG/ML VIAL ONE (01:06)
[2019-01-06 01:26] LABS: Blood Urea Nitrogen 103 MG/DL (7-18); Calcium 8.6 MG/DL (8.5-10.1); Glucose 110 MG/DL (74-106); Osmolality,Calculated 315.1 MOS/KG (273-304); Sodium 142 MMOL/L (136-145)
[2019-01-06 01:27] LABS: Basophils % 0.1 % (0.0-0.8); Hematocrit 20.9 VOL% (42.0-52.0); Immature Granulocytes % 3.3 %; Immature Granulocytes Absolute 0.42 #; Lymphocytes # 1.9 10*3/uL (1.4-4.0); Mean Corpuscular HGB Conc 30.1 GM/DL (32-36); Mean Corpuscular Hemoglobin 29 PG (27-34); Mean Corpuscular Volume 97.2 FL (87-102); Mean Platelet Volume 9.8 FL (9.6-12.0); Monocytes # 0.5 10*3/uL (0.11-0.8); Monocytes % 4.2 % (1.7-12.7); Neutrophils # 9.9 10*3/uL (1.4-7.4); Neutrophils % 77.4 % (38.7-73.9); Platelet Count 107 T/CUMM (130-400); Red Blood Count 2.15 MC/CUMM (3.8-5.5); White Blood Count 12.8 T/CUMM (4-12)
[2019-01-06] MEDS ORDERED: DEXTROSE 50% 25 GM/50 ML SYRINGE IV ONE ×2 (01:27→02:52)
[2019-01-06] MEDS ORDERED: ALBUTEROL NEB SOLN 5 MG/ML 20 ML/BOTTLE CONT NEB ONE (01:27)
[2019-01-06] MEDS ORDERED: INSULIN REGULAR 100 UNIT/ML IV ONE ×2 (01:27→02:52)
[2019-01-06 01:29] LABS: Hemoglobin 6.3 GM/DL (14.0-18.0)
[2019-01-06] MEDS ORDERED: SODIUM POLYSTYRENE SULFATE 15 GM/60 ML BOTTLE PO ONE (01:31)
[2019-01-06 01:35] LABS: Potassium > 8.0 MMOL/L (3.5-5.1)
[2019-01-06 01:36] LABS: ABG Base Excess -13.2 MMOL/L (-2.5-2.5); ABG HCO3 13.5 MMOL/L (20-26); ABG Oxygen Saturation 98.7 % (95-100); ABG PCO2 34.1 MM HG (35-48); ABG PH 7.214 (7.35-7.45); ABG PO2 271.8 MM HG (80-95); ABG TCO2 14.5 MMOL/L (23-27)
[2019-01-06 02:07] LABS: INR 1.8; PT Patient Result 19.9 SECS
[2019-01-06 02:16] LABS: Partial Thromboplastin Time 79.4 SECS (0-40)
[2019-01-06] MEDS ORDERED: VANCOMYCIN INJ 1,500 MG in SODIUM CHLORIDE 0.9% 500 ML IV ONE (02:30)
[2019-01-06 02:31] LABS: ABG Base Excess -8.5 MMOL/L (-2.5-2.5); ABG HCO3 17.4 MMOL/L (20-26); ABG Oxygen Saturation 99.7 % (95-100); ABG PCO2 34.3 MM HG (35-48); ABG PH 7.305 (7.35-7.45); ABG TCO2 16.5 MMOL/L (23-27)
[2019-01-06] MEDS ORDERED: HYDROCORTISONE 100 MG VIAL IV ONE (03:06)
[2019-01-06] MEDS ORDERED: SODIUM CHLORIDE 0.9% 1,000 ML IV ONE ×2 (03:06→03:29)
[2019-01-06] MEDS ORDERED: CALCIUM CHLORIDE 1,000 MG/10 ML SYRINGE IV ONE ×3 (03:27→03:56)
[2019-01-06] MEDS ORDERED: LORazepam 2 MG/1 ML VIAL IV ONE (03:30)
[2019-01-06] MEDS ORDERED: EPINEPHrine 1 MG/10 ML SYRINGE IV ONE ×2 (03:49→03:56)
[2019-01-06] MEDS ORDERED: SODIUM BICARBONATE 50 MEQ/50 ML SYRINGE IV ONE ×2 (03:57→04:03)
[2019-01-06] MEDS ORDERED: EPINEPHrine 1 MG/ML VIAL IV ONE ×3 (03:58→04:05)
[2019-01-06] MEDS ORDERED: DOPamine 800 MG/250 ML PREMIX IV PRN (04:31)
[2019-01-06 04:41] VITALS: BP 22/12
[2019-01-06] MEDS ORDERED: VANCOMYCIN INJ 500 MG in SODIUM CHLORIDE 0.9% 100 ML IV PRN (06:25)
[2019-01-06] MEDS: VASOPRESSIN 100 UNITS in SODIUM CHLORIDE 0.9% 95 ML IV SCH (06:36)
== END 2019-01-06 04:07 | disposition expired | DRG 270 ==
LOC: N.ED 08:02 → N.EDINP 09:01 → N.CC 14:57
PROVIDERS: ADMIT Internal Medicine; ATTEND Internal Medicine
PROC: VAVDCFI (2019-01-05 21:05)